=== PATIENT | female | born 1950 | race Hispanic/Latino ===

== ENCOUNTER → 2019-11-20 | Outpatient (CLI) | payer MEDICARE, BC ==
--- NOTE | 2019-11-20 15:37 | Diagnostic Imaging Report ---
Exam: KUB - 2 views Indication: Urinary calculus Comparison: Renal ultrasound of the same day Findings: 5 mm calcific density overlying the medial aspect of the left renal silhouette may represent a calculus versus intraluminal bowel content. No other radiographically apparent renal calculi. Nonobstructive bowel gas pattern. No free air. No acute osseous injury. Calcified uterine fibroids. Impression: 5 mm calcific density at the medial left renal silhouette may represent calculus versus intraluminal bowel content. Signed by: Kim Garcia MD on 11/20/2019 3:34 PM
--- NOTE | 2019-11-20 16:39 | Diagnostic Imaging Report ---
EXAM: Renal Ultrasound INDICATION: ^[id number] ^[id number] ^HYDRONEPHROSIS COMPARISON: KUB of the same day TECHNIQUE: Transverse and longitudinal images of the kidneys and bladder were obtained. FINDINGS: Right Kidney: Length: 10.7 cm Appearance: Normal echogenicity. Collecting system: Moderate hydronephrosis Stones: None Cyst/Mass: None Left Kidney: Length: 11.2 cm Appearance: Normal echogenicity. Collecting system: Mild hydronephrosis Stones: None Cyst/Mass: None Bladder: No mass or calculi. Right ureteral jet visualized. Prevoid volume estimate of 141cc. Post void image shows complete emptying. IMPRESSION: Moderate right and mild left hydronephrosis, persistent following voiding. Signed by: Kim Garcia MD on 11/20/2019 4:36 PM
== END ==
LOC: US 13:06
PROVIDERS: ATTEND Urology
DX: N13.30 Unspecified hydronephrosis (principal)
CPT/HCPCS: 74018; 76770

== ENCOUNTER → 2019-12-06 | Outpatient (CLI) | payer MEDICARE, BC ==
[~2019-12-06] MED LIST: AMLODIPINE BESYL5 MG PO; ASPIR 8181 MG PO; CEFDINIR300 MG PO; CLINDAMYCI300 MG/51 IV; Calcium Carbonate 500MG Chew PO; DITROPAN XL5 MG PO; HYDRALAZINE HCL25 MG PO; IBUPROFEN200 MG PO; KEFLEX500 MG PO; LABETALOL HCL100 MG PO; LEVAQUIN500 MG IV; MELATONIN5 M2 PO; METHOTREXATE2.5 MG PO; PANTOPRAZOLE SO40 MG PO; PRAVASTATIN SOD20 MG PO; SERTRALINE HCL100 MG PO; SIMETHICONE80 MG PO; SULFASALAZINE500 MG PO; TYLENOL # 31 EA PO; TYLENOL WITH C1 EACH PO; VITAMIN D32000 UNI2 PO; folic acid PO; potassium PO
--- NOTE | 2019-12-06 10:52 | Diagnostic Imaging Report ---
EXAM: CT Abdomen and Pelvis WITHOUT intravenous contrast INDICATION: Renal calculus, hydronephrosis COMPARISON: KUB 11/20/2019, renal ultrasound 11/20/2019 TECHNIQUE: Abdomen and pelvis were scanned utilizing a multidetector helical scanner from the lung base to the pubic symphysis without administration of IV contrast. Coronal and sagittal reformations were obtained. IV CONTRAST: None ORAL CONTRAST: None COMPLICATIONS: None RADIATION DOSE: Total DLP: 456 mGy*cm Dose modulation, iterative reconstruction, and/or weight based adjustment of the mA/kV was utilized to reduce the radiation dose to as low as reasonably achievable. FINDINGS: LOWER THORAX: Scattered coronary artery atherosclerotic calcifications. HEPATOBILIARY: No focal liver lesion. No biliary ductal dilation. Cholelithiasis without CT evidence of gallstones. SPLEEN: Subcentimeter calcified granuloma in the nonenlarged spleen. PANCREAS: No focal masses or ductal dilatation. ADRENALS: No adrenal nodules. KIDNEYS/URETERS: Moderate to severe left hydroureteronephrosis without obstructing calculus. This is likely secondary to extrinsic compression from a bulky calcified uterine fibroid which exerts mass effect upon the left distal ureter and ureterovesical junction. Multiple nonobstructive 3 to 4 mm left renal calculi. Nonobstructive renal calculi on the right measure up to 6 mm. No right hydronephrosis or hydroureter. PELVIC ORGANS/BLADDER: Multiple prominent calcified uterine fibroids, the most clinically significant of which measures up to 5.1 x 5.9 x 6.3 cm with associated mass effect upon the distal ureter and left ureterovesical junction. Mild bladder prolapse through the pelvic floor. PERITONEUM / RETROPERITONEUM: No free air or fluid. LYMPH NODES: No lymphadenopathy. VESSELS: Moderate atherosclerotic calcifications of the nonaneurysmal abdominal aorta and major branches. GI TRACT: Diverticulosis without CT evidence of diverticulitis. No abnormal bowel thickening. No bowel obstruction. Normal appendix BONES AND SOFT TISSUES: No acute osseous injury. No suspicious lytic or blastic lesions. Degenerative changes of the visualized spine. Minimal retrolisthesis at L2-3 and minimal anterolisthesis at L3-4 without spondylolysis. IMPRESSION: Moderate to severe left hydroureteronephrosis without obstructing calculus, likely secondary to extrinsic compression upon the left distal ureter and left ureterovesical junction by bulky calcified uterine fibroids. Multiple nonobstructive right and left renal calculi, up to 4 mm on the left and 6 mm on the right. Mild bladder prolapse. Cholelithiasis without CT evidence of cholecystitis. Signed by: Kim Garcia MD on 12/06/2019 10:49 AM
== END ==
LOC: CT 09:20
PROVIDERS: ATTEND Urology
DX: N20.0 Calculus of kidney (principal); N13.30 Unspecified hydronephrosis
CPT/HCPCS: 74176

== ENCOUNTER 2019-12-20 11:10 | Inpatient (IN) | payer MEDICARE, BC, OTHER ==
[~2019-12-20] VITALS: Ht 154.9 cm; Wt 66.7 kg
--- OUTSIDE RECORDS SUMMARY | 2019-12-20 11:12 | XMS REPORT ---
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 Allergies, Adverse Reactions, Alerts This patient has no known allergies or adverse reactions. Medications This patient has no known medications. Results Test Description Test Time Test Comments Text Results Atomic Results Result Comments CT ABDOMEN/PELVIS WO 2019-12-06 10:38:00 [place] [id number] [place] [id number] Patient Name: YOHANA JURADO MR #: [id number] : 1950 Age/Sex: 69/F Req #: [id number] [facility] Physician: Ordered by: SINAI LEW MD Report #: [id number] Location: CT Room/Bed: Procedure: [id number] CT/CT ABDOMEN/PELVIS WO Exam Date: 12/06/19 Exam Time: 0950 REPORT STATUS: Signed EXAM: CT Abdomen and Pelvis WITHOUT intravenous contrast INDICATION: Renal calculus, hydronephrosis COMPARISON: KUB 11/20/2019, renal ultrasound 11/20/2019 TECHNIQUE: Abdomen and pelvis were scanned utilizing a multidetector helical scanner from the lung base to the pubic symphysis without administration of IV contrast. Coronal and sagittal reformations were obtained. IV CONTRAST: None ORAL CONTRAST: None COMPLICATIONS: None RADIATION DOSE: Total DLP: 456 mGy*cm Dose modulation, iterative reconstruction, and/or weight based adjustment of the mA/kV was utilized to reduce the radiation dose to as low as reasonably achievable. FINDINGS: LOWER THORAX: Scattered coronary artery atherosclerotic calcifications. HEPATOBILIARY: No focal liver lesion. No biliary ductal dilation. Cholelithiasis without CT evidence of gallstones. SPLEEN: Subcentimeter calcified granuloma in the nonenlarged spleen. PANCREAS: No focal masses or ductal dilatation. ADRENALS: No adrenal nodul es. KIDNEYS/URETERS: Moderate to severe left hydroureteronephrosis without obstructing calculus. This is likely secondary to extrinsic compression from a bulky calcified uterine fibroid which exerts mass effect upon the left distal ureter and ureterovesical junction. Multiple nonobstructive 3 to 4 mm left renal calculi. Nonobstructive renal calculi on the right measure up to 6 mm. No right hydronephrosis or hydroureter. PELVIC ORGANS/BLADDER: Multiple prominent calcified uterine fibroids, the most clinically significant of which measures up to 5.1 x 5.9 x 6.3 cm with associated mass effect upon the distal ureter and left ureterovesical junction. Mild bladder prolapse through the pelvic floor. PERITONEUM / RETROPERITONEUM: No free air or fluid. LYMPH NODES: No lymphadenopathy. VESSELS: Moderate atherosclerotic calcifications of the nonaneurysmal abdominal aorta and major branches. GI TRACT: Diverticulosis without CT evidence of diverticulitis. No abnormal bowel thickening. No bowel obstruction. Normal appendix BONES AND SOFT TISSUES: No acute osseous injury. No suspicious lytic or blastic lesions. Degenerative changes of the visualized spine. Minimal retrolisthesis at L2-3 and minimal anterolisthesis at L3-4 without spondylolysis. IMPRESSION: Moderate to severe left hydroureteronephrosis without obstructing calculus, likely second elizabeth to extrinsic compression upon the left distal ureter and left ureterovesical junction by bulky calcified uterine fibroids. Multiple nonobstructive right and left renal calculi, up to 4 mm on the left and 6 mm on the right. Mild bladder prolapse. Cholelithiasis without CT evidence of cholecystitis. Signed by: Neil Mak MD on 12/06/2019 10:49 AM Dictated By: NEIL MAK MD 1047 Transcribed By: MAKAYLA on 12/06/19 1042 COPY TO: SINAI LEW MD US RENAL RETROPERITONEAL COMP 2019-11-20 16:34:00 [place] [address] Patient Name: YOHANA JURADO MR #: [id number] : 1950 Age/Sex: 69/F Req #: [id number] Adm Physician: Ordered by: SINAI LEW MD Report #: [id number] Location: Room/Bed: Procedure: [id number] US/US RENAL RETROPERITONEAL COMP Exam Date: 11/20/19 Exam Time: 8 REPORT STATUS: Signed EXAM: Renal Ultrasound INDICATION: [id number] HYDRONEPHROSIS COMPARISON: KUB of the same day TECHNIQUE: Transverse and longitudinal images of the kidneys and bladder were obtained. FINDINGS: Right Kidney: Length: 10.7 cm Appearance: Normal echogenicity. Collecting system: Moderate hydronephrosis Stones: None Cyst/Mass: None Left Kidney: Length: 11.2 cm Appearance: Normal echogenicity. Collecting system: Mild hydronephrosis Stones: None Cyst/Mass: None Bladder: No mass or calculi. Right ureteral jet visualized. Prevoid volume estimate of 141cc. Post void image jesus ws complete emptying. IMPRESSION: Moderate right and mild left hydronephrosis, persistent following voiding. Signed by: Neil Mak MD on 11/20/2019 4:36 PM Dictated By: NEIL MAK MD 1636 Transcribed By: MAKAYLA on 11/20/19 1636 COPY TO: SINAI LEW MD ABDOMEN-1VIEW (KUB) 2019-11-20 15:31:00 [place] [address] Patient Name: YOHANA JURADO MR #: [id number] : 1950 Age/Sex: 69/F Req #: [id number] [facility] Physician: Ordered by: SINAI LEW MD Report #: [id number] Location: Room/Bed: Procedure: [id number] DX/ABDOMEN-1VIEW (KUB) Exam Date: 11/20/19 Exam Time: 1350 REPORT STATUS: Signed Exam: KUB - 2 views Indication: Urinary calculus Comparison: Renal ultrasound of the same day Findings: 5 mm calcific density overlying the medial aspect of the left renal silhouette may represent a calculus versus intraluminal bowel content. No other radiographically apparent renal calculi. Nonobstructive bowel gas pattern. No free air. No acute osseous injury. Calcified uterine fibroids. Impression: 5 mm calcific density at the medial left renal silhouette may represent calculus versus intraluminal bowel content. Signed by: Neil Mak MD on 11/20/2019 3:34 PM Dictated By: NEIL MAK MD 1534 Transcribed By: MAKAYLA on 11/20/19 1534 COPY TO: SINAI LEW MD
[2019-12-20 12:11] LABS: BASOPHILS # (AUTO) 0.1 (0.0-0.1); BASOPHILS % 0.5 % (0.0-1.0); EOSINOPHILS # (AUTO) 0.2 (0.0-0.4); EOSINOPHILS % 0.8 % (0.0-6.0); HEMATOCRIT 36.8 % (34.2-44.1); HEMOGLOBIN 12.3 g/dL (12.0-16.0); LYMPHOCYTES # (AUTO) 0.6 (1.0-3.2); LYMPHOCYTES % 2.5 % (18.0-39.1); MEAN CORPUSCULAR HEMOGLOBIN 33.1 pg (28-32); MEAN CORPUSCULAR HGB CONC 33.4 g/dL (31-35); MEAN CORPUSCULAR VOLUME 98.9 fL (81-99); MONOCYTES # (AUTO) 1.8 (0.2-0.8); MONOCYTES % 7.8 % (4.4-11.3); NEUTROPHILS # (AUTO) 19.2 (2.1-6.9); NEUTROPHILS % 82.8 % (38.7-80.0); PLATELET COUNT 154 x10e3/uL (140-360); RED BLOOD COUNT 3.72 x10e6/uL (3.6-5.1)
[2019-12-20 12:19] LABS: CLARITY,URINE SL CLOUDY (CLEAR); COLOR,URINE YELLOW (YELLOW); LEUKOCYTE ESTERASE ,URINE LARGE (NEGATIVE)
[2019-12-20 12:20] LABS: BILIRUBIN,URINE NEGATIVE (NEGATIVE); KETONES,URINE NEGATIVE (NEGATIVE); NITRITE,URINE POSITIVE (NEGATIVE); PROTEIN,URINE DIPSTICK 2+ (NEGATIVE); URINE UROBILINOGEN 0.2 mg/dL (0.2 - 1)
[2019-12-20 12:24] LABS: STREPTOCOCCUS GRP A ANTIGEN NEGATIVE (NEGATIVE)
[2019-12-20 12:28] LABS: WBC,URINE (MAN) >50 /HPF (0-5)
[2019-12-20 12:29] LABS: BACTERIA,URINE MANY /HPF; INFLUENZAE A&B ANTIGEN (RAPID) NEGATIVE (NEGATIVE)
[2019-12-20 12:30] LABS: EPITHELIAL CELLS,URINE FEW /LPF
[2019-12-20 12:33] LABS: ANION GAP 15.2 mmol/L (8-16); CREATININE, SERUM 1.06 mg/dL (0.57-1.11); POTASSIUM 3.2 mmol/L (3.5-5.1)
[2019-12-20] MEDS ORDERED: KCL 20MEQ/.9 SOD CHL 1,000 ML IV ONE (13:15)
[2019-12-20] MEDS ORDERED: ONDANSETRON HCL INJ 2MG/ML 2ML 2 MG/ML VIAL IV PRN (13:15)
[2019-12-20] MEDS ORDERED: POTASSIUM CHLORIDE 20 MEQ TAB CR PO NR (13:30)
[2019-12-20] MEDS: MEROPENEM 1GM 100 ML IV SCH ×2 (14:31→22:00)
--- NOTE | 2019-12-20 15:11 | Diagnostic Imaging Report ---
History: Abdominal pain Comparison: None Findings: Mild curvilinear subsegmental atelectasis versus scar at the left lung base. 3 mm calcified granuloma at the apex of the right hemithorax. Lungs otherwise clear. No pleural effusions or pneumothorax. The heart shadow is normal in size. The thoracic aorta is mildly tortuous. Degenerative changes are present in the spine and shoulders. Impression: No definite evidence of acute cardiopulmonary disease. Signed by: Rene Morton MD on 12/20/2019 3:08 PM
--- NOTE | 2019-12-20 15:20 | NUR ---
Received patient via stretcher from [place]. AAOX4 to time, person, place, situation. SOB with maximum exertion. Oriented patient to room. Instructed to use call light for assistance. Voiced understanding.
[2019-12-20] MEDS ORDERED: SULFASALAZINE500 MG PO (16:04)
[2019-12-20] MEDS ORDERED: VITAMIN D32000 UNI2 PO (16:04)
[2019-12-20] MEDS ORDERED: PRAVASTATIN SOD20 MG PO (16:04)
[2019-12-20] MEDS ORDERED: SERTRALINE HCL100 MG PO (16:04)
[2019-12-20] MEDS ORDERED: METHOTREXATE2.5 MG PO (16:04)
[2019-12-20] MEDS ORDERED: HYDRALAZINE HCL25 MG PO (16:04)
[2019-12-20] MEDS ORDERED: LABETALOL HCL100 MG PO (16:04)
[2019-12-20] MEDS ORDERED: AMLODIPINE BESYL5 MG PO (16:04)
[2019-12-20] MEDS ORDERED: folic acid PO (16:04)
[2019-12-20] MEDS ORDERED: potassium PO (16:04)
[2019-12-20] MEDS ORDERED: ASPIR 8181 MG PO (16:04)
[2019-12-20] MEDS ORDERED: PANTOPRAZOLE SO40 MG PO (16:04)
[2019-12-20] MEDS ORDERED: IBUPROFEN200 MG PO (16:04)
--- NOTE | 2019-12-20 16:04 | Diagnostic Imaging Report ---
CT of the abdomen and pelvis, without contrast. History: UTI, hydronephrosis. Comparison: 12/06/2019. Technique: Multidetector CT scanning of the abdomen and pelvis was performed from the level of the lung bases to the inferior pubic rami after intravenous and oral administration of contrast. Coronal and sagittal multiplanar reformations were obtained. RADIATION DOSE: Total DLP: 671.37 mGy*cm Dose modulation, iterative reconstruction, and/or weight based adjustment of the mA/kV was utilized to reduce the radiation dose to as low as reasonably achievable. FINDINGS: There is a basilar atelectasis/scarring. The liver is normal in size and attenuation on this noncontrast enhanced examination. Stable appearing calcified gallstones noted within the gallbladder. There is no evidence for gallbladder wall thickening or pericholecystic fluid. There is no biliary ductal dilatation. There is a small to moderate size hiatal hernia present. The stomach is otherwise unremarkable. The spleen, pancreas, and bilateral adrenal glands demonstrate unremarkable noncontrast appearance. The kidneys are normal in size and location. Stable subcentimeter nonobstructing renal calculi/parenchymal calcifications noted bilaterally. There is stable moderate left-sided hydroureteronephrosis without evidence for obstructing stone, unchanged from the prior CT examination from 12/06/2019. Stable mild left-sided perinephric stranding again noted. There has been interval development of moderate right-sided hydroureteronephrosis without evidence for obstructing stone. Bulky calcified uterine fibroids again noted. Also noted is mild bladder prolapse through the pelvic floor, similar to the prior examination. The abdominal aorta is normal in course and caliber with atherosclerotic calcifications within its course and branch vessels. The IVC is normal in caliber. Please note that evaluation the bowel is limited without the use of enteric contrast material. The visualized loops of small and large bowel demonstrate no evidence of obstruction or inflammation. Multiple diverticula are noted within the sigmoid and descending colon without evidence for acute diverticulitis. The appendix is visualized and appears unremarkable. There is no ascites or intraperitoneal free air. No abnormally enlarged lymph nodes are identified within the abdomen or pelvis. The osseous structures demonstrate stable degenerative changes without evidence for acute fracture or destructive process. IMPRESSION: Interval development of moderate right-sided hydroureteronephrosis. Persistent, stable appearing moderate left-sided hydroureteronephrosis. There is no evidence for obstructive calculus. Findings may be secondary to urinary bladder prolapse and/or extrinsic compression of the ureterovesicular junctions by bulky calcified uterine fibroids. Stable appearing nonobstructive subcentimeter renal calculi again noted. Cholelithiasis without CT evidence for acute cholecystitis. Diverticulosis without evidence for acute diverticulitis. Signed by: Dr. Armando Mar MD on 12/20/2019 4:01 PM
[2019-12-20 16:07] VITALS: BP 124/91
--- NOTE | 2019-12-20 16:10 | NUR ---
O aware of CT results
[2019-12-20 16:15] VITALS: BP 124/91
--- NOTE | 2019-12-20 16:35 | NUR ---
aware of consult
[2019-12-20] MEDS: ACETAMINOPHEN 325 MG TAB PO PRN (17:20)
[2019-12-20] MEDS ORDERED: POTASSIUM CHLORIDE 20 MEQ TAB CR PO STA (18:41)
[2019-12-20] MEDS ORDERED: ACETAMINOPHEN/CODEINE 300MG - 30MG TAB PO PRN (18:45)
--- NOTE | 2019-12-20 19:10 | NUR ---
Report given to oncoming nurse of patient's status. Resting in bed. No s/s of acute distress noted. Side rails upx2, call light within reach.
[2019-12-20 20:00] VITALS: BP 110/53
[2019-12-20] MEDS ORDERED: SODIUM CHLORIDE 0.9% 1000ML 0 ML ONE (22:24)
[2019-12-20] MEDS ORDERED: SODIUM CHLORIDE 0.9% 250ML 250 ML ONE (22:32)
[2019-12-21] VITALS (10 sets, daily range): BP systolic 106–161; BP diastolic 67–95
[2019-12-21 06:14] LABS: BASOPHILS # (AUTO) 0.1 (0.0-0.1); BASOPHILS % 0.4 % (0.0-1.0); EOSINOPHILS # (AUTO) 0.1 (0.0-0.4); EOSINOPHILS % 0.8 % (0.0-6.0); HEMATOCRIT 33.7 % (34.2-44.1); HEMOGLOBIN 10.6 g/dL (12.0-16.0); LYMPHOCYTES # (AUTO) 0.6 (1.0-3.2); LYMPHOCYTES % 3.6 % (18.0-39.1); MEAN CORPUSCULAR HEMOGLOBIN 32.3 pg (28-32); MEAN CORPUSCULAR HGB CONC 31.5 g/dL (31-35); MEAN CORPUSCULAR VOLUME 102.7 fL (81-99); MONOCYTES # (AUTO) 1.1 (0.2-0.8); MONOCYTES % 6.7 % (4.4-11.3); NEUTROPHILS # (AUTO) 13.8 (2.1-6.9); NEUTROPHILS % 87.4 % (38.7-80.0); PLATELET COUNT 133 x10e3/uL (140-360); RED BLOOD COUNT 3.28 x10e6/uL (3.6-5.1)
[2019-12-21 06:32] LABS: ALBUMIN 2.7 g/dL (3.5-5.0); ALBUMIN/GLOBULIN RATIO 0.8 (0.8-2.0); ANION GAP 11.5 mmol/L (8-16); CALCIUM 8.9 mg/dL (8.4-10.2); CREATININE, SERUM 0.99 mg/dL (0.57-1.11); POTASSIUM 4.5 mmol/L (3.5-5.1)
[2019-12-21 06:44] LABS: MAGNESIUM 1.6 MG/DL (1.3-2.1)
[2019-12-21 07:02] LABS: THYROID STIMULATING HORMONE 2.685 uIU/mL (0.350-4.940)
--- NOTE | 2019-12-21 07:12 | NUR ---
REPORT GIVEN TO ONCOMING NURSE. AAOX3. NO SIGNS OF IV INFILTRATION AT L FA. RESTING IN BED. BED LOCKED AND IN LOW POSITION. CALL LIGHT WITHIN REACH.
[2019-12-21] MEDS: FAMOTIDINE 20 MG TAB PO SCH ×2 (08:15→15:20)
[2019-12-21] MEDS: ACETAMINOPHEN 325 MG TAB PO PRN ×2 (08:16→15:20)
[2019-12-21] MEDS: SERTRALINE HCL 100 MG TAB PO SCH (08:16)
[2019-12-21] MEDS: MEROPENEM 1GM 100 ML IV SCH ×2 (08:16→21:30)
[2019-12-21] MEDS: PRAVASTATIN 20 MG TAB PO SCH (08:16)
[2019-12-21] MEDS: AMLODIPINE BESYLATE 5 MG TAB PO SCH (15:20)
--- NOTE | 2019-12-21 17:45 | Consultation ---
DATE OF CONSULTATION: REASON FOR CONSULTATION: Pyelonephritis, UTI. HISTORY OF PRESENT ILLNESS: This patient is a very pleasant 69-year-old white female with history of renal stone. The patient comes in with fever, chills, body aches, not feeling well. She does have history of renal stone. She does have history of bladder surgery. The patient comes into the emergency room on December 19 with one week not feeling well, feverish, 101. No shortness of breath. No cough. No diarrhea, but since we were in the middle of the epidemic for COVID-19, so it was ordered. The patient was started on IV antibiotic. She is telling me she is feeling much better at present time, there are no symptoms whatsoever. REVIEW OF SYSTEMS: At present time HEENT: Negative. PULMONARY: Negative. CARDIAC: Negative. : Negative at present time, but she is telling me she has problem with the urine for a while. She said her body aches and her fever has all improved. PAST MEDICAL HISTORY: Renal stone, hypertension, osteoarthritis. PAST SURGICAL HISTORY: Hernia repair, thyroid surgery. ALLERGIES: AUGMENTIN, BUT SHE IS DOING GOOD WITH MEROPENEM. LABORATORY DATA: Urine cultures gram-negative. When she first came her white count was 22,000, today is 15.7, hemoglobin of 10. Her COVID-19 is pending. PHYSICAL EXAMINATION: GENERAL: She is currently alert, oriented, does not seem to be in acute distress. VITAL SIGNS: Stable. Currently afebrile. HEENT: She is not icteric. NECK: Supple. CHEST: Clear. HEART: S1-S2, no murmur. ABDOMEN: Soft. Bowel sounds present. EXTREMITIES: No edema. SKIN: No rash. IMPRESSION: 1. Sepsis on admission, pyelonephritis, currently on meropenem. Await urine cultures are blood cultures. Clinically feeling better. 2. COVID-19 being ordered. There is nothing to suggest pneumonia at present time and we will keep her on droplet. If it is negative, hopefully we can get this result, can remove the droplet isolation. Continued IV fluid. Discussed with the patient. Discussed with medical team, answered all their questions. MD BRANDAN Hogan/TINA /[id number]
--- NOTE | 2019-12-21 22:56 | Consultation ---
DATE OF CONSULTATION: 12/21/2019 REASON FOR CONSULTATION: The patient is a 69-year-old 2, para 2, with last menstrual period in June of 2005, who was admitted to the hospital with dysuria, fatigue, malaise, and myalgias. Her symptoms started a week ago, got a little better, but then worsened again 3 days ago. She had a fever and she was admitted for urosepsis, basically cystitis with right hydronephrosis and Dr. Rick Ayala consulted me for evaluation for hysterectomy and also to reflect on the urgency of the surgery. The patient had a white count of 23,000 on admission and fever. She has been on IV antibiotics for this since admission. PAST MEDICAL HISTORY: Remarkable for hypertension, hyperlipidemia, rheumatoid arthritis for 10 years, on methotrexate, sulfasalazine, and Motrin. Medical history is also remarkable for uterine prolapse, anxiety and depression, and renal stones, which she has had in the past, but current ones have been present for approximately a month. She also has some kind of heart problem, which she did not know how to describe, but she said, Dr. Amarjit Adorno is her senior mechanical estimator and he told her to be careful and not overdo things, but otherwise did not recommend any therapy. PAST SURGICAL HISTORY: Remarkable for right inguinal hernia repair 15 years ago and for thyroid surgery. ALLERGIES: AUGMENTIN AND LISINOPRIL. MEDICATIONS: Please see her medication profile. FAMILY HISTORY: Remarkable for diabetes in her mother, hypertension in her mother and father, and heart disease in her mother and father. SOCIAL HISTORY: Remarkable for occasional alcohol intake and very occasional vaping. PHYSICAL EXAMINATION: VITAL SIGNS: The patient's height is 61 inches. Her weight is 147 pounds. Her temperature late this morning was 98.8, current temperature is 101, pulse 87, blood pressure 142/79, respirations 18, and SpO2 93%. ABDOMEN: Relatively benign. Mild right-sided tenderness. There was no CVA tenderness on either side and no rebound tenderness. PELVIC: With a commercial director revealed complete uterovaginal prolapse with the cervix and bladder visible external to the introitus. I was able to push the uterus and bladder back up and the uterus felt slightly enlarged, but did not feel very enlarged, but exam was limited due to the place where the exam was performed. The vaginal salazar were smooth without rugation. No vulvar lesions were noted. LABORATORY VALUES: As stated on admission, white count 23.2. Her sodium on admission 132, potassium 3.2, and today her sodium was 138, potassium 4.5, chloride 106, bicarb 25, glucose 98, and creatinine 0.99. Hemoglobin A1c was 5.8. Her white count today 15.7, hemoglobin 10.6, hematocrit 33.7, platelets 133 with 87 segs and 4 lymphs. Urine culture shows greater than 100,000 gram-negative rods. Culture and sensitivities are pending. Urinalysis on admission showed 50-100 white blood cells per high-power field. Nitrites were positive and nitrates were positive. Influenza A and B were negative. Strep A was negative. COVID-[address] scan revealed moderate right hydronephrosis, which was a new finding and persistent moderate left hydronephrosis, which was a previous finding. There was no evidence of obstruction by stones, but there were nonobstructing bilateral stones of less than 1 cm in size noted. It was thought that the hydronephrosis may be due to bladder prolapse and/or extensive compression of uterovesical junction by bulky calcified fibroids of the uterus. However, no dimensions were given to the fibroids or to the uterus as a whole. Also, incidental findings cholelithiasis without cholecystitis and diverticulosis without diverticulitis. She also had a chest x-ray, which showed a 3 mm calcified granuloma at the apex of the right hemithorax and mild subsegmental atelectasis versus scarring at the left lung base. IMPRESSION: Cystitis with hydronephrosis, hypokalemia, total uterovaginal prolapse and vaginal atrophy in a patient, who also has hypertension on Norvasc, anxiety and depression on Zoloft and rheumatoid arthritis on immunosuppressants with those medications held during the hospitalization. PLAN: The patient definitely needs hysterectomy with bladder suspension and vaginal cuff suspension. I will discuss the treatment options with Dr. Ayala and also discussed the urgency with which we need to proceed with the surgery. I do think that the surgery should be soon, but whether it needs to be emergent before the ban on elective surgery is questionable at this time. Again, we will discuss with the primary care doctor and with Dr. Rick Ayala, urologist. Thank you very much for the consult. MD ANTONY De Luna/TINA /[id number] cc: DO Will Hernandez MD Ori Hampel, MD MTDD
[2019-12-22] VITALS (11 sets, daily range): BP systolic 95–185; BP diastolic 63–89
[2019-12-22] MEDS: ACETAMINOPHEN 325 MG TAB PO PRN ×3 (05:36→21:49)
[2019-12-22 06:35] LABS: BASOPHILS % 0.4 % (0.0-1.0); EOSINOPHILS # (AUTO) 0.2 (0.0-0.4); EOSINOPHILS % 1.9 % (0.0-6.0); HEMATOCRIT 37.6 % (34.2-44.1); HEMOGLOBIN 12.1 g/dL (12.0-16.0); LYMPHOCYTES # (AUTO) 0.8 (1.0-3.2); MEAN CORPUSCULAR HEMOGLOBIN 31.8 pg (28-32); MEAN CORPUSCULAR HGB CONC 32.2 g/dL (31-35); MEAN CORPUSCULAR VOLUME 98.9 fL (81-99); MONOCYTES # (AUTO) 0.8 (0.2-0.8); MONOCYTES % 9.6 % (4.4-11.3); NEUTROPHILS # (AUTO) 6.5 (2.1-6.9); NEUTROPHILS % 77.1 % (38.7-80.0); PLATELET COUNT 148 x10e3/uL (140-360); RED CELL DISTRIBUTION WIDTH 14.7 % (11.7-14.4)
[2019-12-22 07:02] LABS: ANION GAP 14.5 mmol/L (8-16); BLOOD UREA NITROGEN 18 mg/dL (7-26); BUN/CREATININE RATIO 22 (6-25); CALCIUM 9.5 mg/dL (8.4-10.2); CARBON DIOXIDE 25 mmol/L (22-29); CHLORIDE 101 mmol/L (98-107); CREATININE, SERUM 0.82 mg/dL (0.57-1.11); EST GLOMERULAR FILTRATION RATE > 60 ML/MIN (60-); GLUCOSE 101 mg/dL (74-118); MAGNESIUM 1.7 MG/DL (1.3-2.1); POTASSIUM 3.5 mmol/L (3.5-5.1); SODIUM 137 mmol/L (136-145)
[2019-12-22] MEDS: PRAVASTATIN 20 MG TAB PO SCH (08:13)
[2019-12-22] MEDS: FAMOTIDINE 20 MG TAB PO SCH ×2 (08:13→16:45)
[2019-12-22] MEDS: AMLODIPINE BESYLATE 5 MG TAB PO SCH ×2 (08:13→16:45)
[2019-12-22] MEDS: SERTRALINE HCL 100 MG TAB PO SCH (08:13)
[2019-12-22] MEDS: MEROPENEM 1GM 100 ML IV SCH ×2 (08:13→21:48)
[2019-12-22] MEDS ORDERED: CEFDINIR300 MG PO (11:00)
[2019-12-22] MEDS ORDERED: ONDANSETRON HCL 4 MG ORAL DISINTEGRATING TAB PO PRN (16:15)
[2019-12-22] MEDS: SULFASALAZINE 500 MG TAB PO SCH (16:45)
[2019-12-22] MEDS: HYDRALAZINE HCL 20 MG/ML VIAL IV PRN (21:49)
[2019-12-23] VITALS (8 sets, daily range): BP systolic 129–183; BP diastolic 60–93
[2019-12-23 05:17] LABS: BASOPHILS % 0.5 % (0.0-1.0); EOSINOPHILS # (AUTO) 0.2 (0.0-0.4); EOSINOPHILS % 2.3 % (0.0-6.0); HEMATOCRIT 35.7 % (34.2-44.1); HEMOGLOBIN 11.7 g/dL (12.0-16.0); LYMPHOCYTES # (AUTO) 0.9 (1.0-3.2); LYMPHOCYTES % 11.4 % (18.0-39.1); MEAN CORPUSCULAR HGB CONC 32.8 g/dL (31-35); MEAN CORPUSCULAR VOLUME 97.5 fL (81-99); MONOCYTES # (AUTO) 1.4 (0.2-0.8); MONOCYTES % 16.5 % (4.4-11.3); NEUTROPHILS # (AUTO) 5.6 (2.1-6.9); NEUTROPHILS % 68.3 % (38.7-80.0); PLATELET COUNT 129 x10e3/uL (140-360); RED BLOOD COUNT 3.66 x10e6/uL (3.6-5.1); RED CELL DISTRIBUTION WIDTH 14.7 % (11.7-14.4)
[2019-12-23 05:39] LABS: ANION GAP 14.1 mmol/L (8-16); BLOOD UREA NITROGEN 16 mg/dL (7-26); BUN/CREATININE RATIO 24 (6-25); CALCIUM 9.1 mg/dL (8.4-10.2); CARBON DIOXIDE 25 mmol/L (22-29); CHLORIDE 103 mmol/L (98-107); CREATININE, SERUM 0.68 mg/dL (0.57-1.11); EST GLOMERULAR FILTRATION RATE > 60 ML/MIN (60-); GLUCOSE 117 mg/dL (74-118); POTASSIUM 3.1 mmol/L (3.5-5.1); SODIUM 139 mmol/L (136-145)
--- NOTE | 2019-12-23 06:50 | NUR ---
Received patient lying in bed with eyes open. Respiration even and unlabored without SOB. Call light in reach.
[2019-12-23] MEDS: FAMOTIDINE 20 MG TAB PO SCH ×2 (07:30→17:27)
[2019-12-23] MEDS: AMLODIPINE BESYLATE 5 MG TAB PO SCH ×2 (08:41→17:27)
[2019-12-23] MEDS: HYDRALAZINE HCL 20 MG/ML VIAL IV PRN (08:42)
[2019-12-23] MEDS: SULFASALAZINE 500 MG TAB PO SCH ×2 (09:00→17:27)
[2019-12-23] MEDS: PRAVASTATIN 20 MG TAB PO SCH (09:00)
[2019-12-23] MEDS: SERTRALINE HCL 100 MG TAB PO SCH (09:00)
--- NOTE | 2019-12-23 09:44 | Progress Note ---
DATE: 12/23/2019 SUBJECTIVE: The patient is seen and evaluated. The patient complained of temperature of 100.8 and also complains that her blood pressure is up. Otherwise, no nausea, vomiting, fever, chills, chest pain, or shortness of breath. ALLERGIES: AMOXICILLIN, CLAVULANIC ACID AND LISINOPRIL. MEDICATION: Reviewed as far as Infectious Disease point of view, the patient is on meropenem. LABORATORY STUDIES: COVID-19 not detected. Influenza negative. Group A strep screen negative. Sodium is 139, potassium is 3.1, creatinine of 0.68, hemoglobin is 11.7, white blood cells 8.4 improved from 23.23 on admission with a platelet count of 129, which is lower than yesterday, which was 148. On microbiology studies; urine culture showed E coli, which is pansensitive except to ampicillin and Bactrim. Blood culture was negative on 12/20/2019. Throat culture was negative on 12/20/2019. PRIOR RADIOLOGY STUDIES: The patient had a CT scan of abdomen and pelvis on 12/20/2019 showing a development of moderate right-sided hydroureteronephrosis, persistent and stable appearing moderate left-sided hydroureteronephrosis, and there is no evidence of obstructive calculus. The finding may be secondary to urinary bladder prolapse and/or extrinsic compression of the ureterovesical junction by bulky calcified uterine fibroids. ASSESSMENT: 1. Urinary tract infection with E coli. 2. Sepsis on admission. 3. [id number], influenza, and strep screen were negative with a negative blood culture, positive urine with E coli as mentioned above. 4. Leukocytosis, resolved. 5. Thrombocytopenia. 6. Hypertension. 7. Electrolyte abnormalities. PLAN: Continue with meropenem at this point, the patient can be discharged with oral antibiotics as mentioned in Dr. Sandy's note Keflex, when ready for discharge. As mentioned above, the patient had a temperature of 100.8 this morning, otherwise the patient wants to go home. Alert and oriented, in no acute distress. This case was discussed with Dr. Sandy. We will follow with you. We will discuss with the attending team. Dictated by Demar Wheatley PA-C (Al) Johnny Sandy MD /ELDONL /[id number]
[2019-12-23] MEDS: MEROPENEM 1GM 100 ML IV SCH ×2 (10:12→20:58)
[2019-12-23] MEDS ORDERED: POTASSIUM CHLORIDE 20MEQ/100ML 200 ML IV ONE (10:45)
--- NOTE | 2019-12-23 10:45 | NUR ---
Pt. expressed no spiritual or emotional concerns at this time. Pt expressed appreciation for visit. Loading Checker provided hospitality and information on how to reach weir fisherman, if needed. ERWIN ANDERSON Loading Checker Spiritual Care Department O: [phone]
[2019-12-23] MEDS: LABETALOL HCL 100 MG TAB PO SCH ×2 (10:56→17:28)
[2019-12-23] MEDS ORDERED: SODIUM CHLORIDE 0.9% 250ML 250 ML ONE (11:00)
[2019-12-23] MEDS: ACETAMINOPHEN 325 MG TAB PO PRN (13:47)
[2019-12-23] MEDS ORDERED: PROPOFOL IV EMULSION 10 MG/ML 20 ML VIAL ONE (14:29)
[2019-12-23] MEDS ORDERED: DEXAMETHASONE SOD PHOS INJ 4 MG/ML VIAL ONE (14:29)
[2019-12-23] MEDS ORDERED: LIDOCAINE HCL 2% LOCAL INJ 5 ML SDV VIAL INJ ONE (14:29)
[2019-12-23] MEDS ORDERED: SEVOFLURANE INHAL SOLN 250 ML PEN BTL ONE (14:29)
[2019-12-23] MEDS ORDERED: IOPAMIDOL 300MG/ML 50ML INFUS..BTL IV ONE (14:53)
[2019-12-23] MEDS ORDERED: B&O 60MG R/S 60 MG SUPP PR ONE (14:53)
--- NOTE | 2019-12-23 15:00 | NUR ---
Patient is transported for surgery at this time.
--- NOTE | 2019-12-23 17:15 | NUR ---
Patient is back from surgery. Respiration even and unlabored without SOB.
[2019-12-23] MEDS: PHENAZOPYRIDINE HCL 100 MG TAB PO SCH (17:28)
--- NOTE | 2019-12-23 19:00 | NUR ---
Report given to fertilizer mixer. Respiration even and unlabored without SOB. Call light in reach.
--- NOTE | 2019-12-23 20:26 | Operative Report ---
DATE OF PROCEDURE: 12/23/2019 SURGEON: Rick Ayala MD PREOPERATIVE DIAGNOSES: 1. Bilateral hydronephrosis. 2. Bilateral nephrolithiasis. 3. Severe pelvic prolapse. 4. Atrophic (senile) vaginitis. OPERATIONS PERFORMED: 1. Cystourethroscopy with bilateral ureteral catheterization and then retrograde ureteropyelography. 2. Interpretation of retrograde ureteropyelography with no radiologist present. 3. Cystourethroscopy with complicated placement of bilateral indwelling ureteral stents due to the severe pelvic prolapse. 4. Pelvic examination under anesthesia. ANESTHESIA: General. COMPLICATIONS: None. CLINICAL SUMMARY: Luisa Rodriguez is a 69-year-old woman with severe prolapse. She needs total abdominal hysterectomy, bilateral salpingo-oophorectomy and sacral colpopexy with mesh. The patient on initial CT evaluation several weeks ago had left sided hydronephrosis after admission for the severe pyelonephritis with urinary tract infection. The patient has bilateral hydronephrosis, therefore due to the complicated infection with obstruction, she brought for stenting. She is aware of the risks of bleeding, infection, injury to adjacent structures, need for additional procedures, and elected to proceed. OPERATIVE PROCEDURE IN DETAIL: Luisa Rodriguez was properly identified, taken to the operating room, placed on the cystoscopy table in supine position. Anesthesia was uneventfully begun. The patient was then carefully and gently repositioned in the dorsal lithotomy position with all pressure points were padded. Her genitalia were prepared and draped in usual sterile fashion. The cystoscope sheath with obturator in place was atraumatically inserted into the patient's urethra and bladder was drained. Panendoscopy in her bladder really could not be performed unless we first push the patient's prolapse back into her vagina. We did that and then held the vagina in proper position utilizing an obturator throughout the whole case. Panendoscopy revealed grade 2 to 3 trabeculations. Obviously, the patient prolapse causing bladder outlet obstruction. There were no suspicious lesions. The anatomy was highly distorted. We were able to find the left ureteral orifice negotiated the open-ended ureteral catheter utilizing different wires we were able to somehow negotiate the open-ended catheter into the patient's kidney. There was a brisk, but clear hydronephrotic drip that was obtained. We then placed a 7-[place] [employer] x 24 cm indwelling ureteral stent well in the patient's renal pelvis as well as the patient's bladder. Identical maneuver was performed on the right hand side accomplishing on the right hand side was even more difficult to the left hand side. It was we very difficult to negotiate a wire into the right ureter due to the severe ureteral tortuosity due to the horrific prolapse that the patient is experiencing. On the right-hand side we also had difficulty in placing a 7-[place] Citizen x 26 cm indwelling ureteral stent due to the anatomical distortion from the prolapse. Interpretation of retrograde ureteropyelography contrast was instilled in retrograde fashion bilaterally. There was very remarkable bilateral hydronephrosis noted. There was ureteral tortuosity and bilateral hydroureteronephrosis. At the end of the case, the stents were coiled in each kidney as well as bladder, but the entire bladder below the pubis due to the prolapse. Stones were noted as on the CT. The patient's bladder was drained. The cystoscope was withdrawn. Pelvic examination revealed a complete grade 4 prolapse of the cervix to outside the vagina. There was vaginal wall atrophy. The patient was then uneventfully reversed from the anesthesia and taken the to recovery room in stable condition. There were no complications to the procedure. She tolerated the procedure well. Plans will be to observe the patient overnight to ensure she is not spiking temperature and then we will plan to discharge her tomorrow on cultures and antibiotics. Next step in management is to bringing her back and perform lithotripsy on the stone noted on retrograde pyelogram. Rick Ayala MD [place]/MODL /[id number] cc: Darcy Felipe M.D. MTDChristy
[2019-12-24] VITALS (13 sets, daily range): BP systolic 97–168; BP diastolic 53–81
[2019-12-24 05:08] LABS: BASOPHILS % 0.5 % (0.0-1.0); EOSINOPHILS % 0.5 % (0.0-6.0); HEMATOCRIT 35.8 % (34.2-44.1); HEMOGLOBIN 11.7 g/dL (12.0-16.0); LYMPHOCYTES # (AUTO) 1.8 (1.0-3.2); LYMPHOCYTES % 20.5 % (18.0-39.1); MEAN CORPUSCULAR HEMOGLOBIN 31.7 pg (28-32); MEAN CORPUSCULAR HGB CONC 32.7 g/dL (31-35); MONOCYTES # (AUTO) 1.4 (0.2-0.8); NEUTROPHILS # (AUTO) 5.4 (2.1-6.9); NEUTROPHILS % 61.5 % (38.7-80.0); PLATELET COUNT 174 x10e3/uL (140-360); RED BLOOD COUNT 3.69 x10e6/uL (3.6-5.1); RED CELL DISTRIBUTION WIDTH 14.8 % (11.7-14.4)
[2019-12-24 05:27] LABS: ANION GAP 13.7 mmol/L (8-16); BLOOD UREA NITROGEN 21 mg/dL (7-26); BUN/CREATININE RATIO 29 (6-25); CALCIUM 8.8 mg/dL (8.4-10.2); CARBON DIOXIDE 27 mmol/L (22-29); CHLORIDE 104 mmol/L (98-107); CREATININE, SERUM 0.72 mg/dL (0.57-1.11); EST GLOMERULAR FILTRATION RATE > 60 ML/MIN (60-); GLUCOSE 101 mg/dL (74-118); POTASSIUM 3.7 mmol/L (3.5-5.1); SODIUM 141 mmol/L (136-145)
--- NOTE | 2019-12-24 06:50 | NUR ---
Received patient lying in bed with eyes open. Respiration even and unlabored without SOB. Call light in reach.
--- NOTE | 2019-12-24 07:11 | NUR ---
BSSR GIVEN TO LALITHA DARLING, PATIENT SEEN WALKING IN ROOM TO BATHROOM, GAIT STEADY, NO DISTRESS NOTED, CONTINUES TO C/O VAGINAL PAIN AND DISCOMFORT, STATES "I HAVE APPOINTMENT TO GO SEE MD LANDRY TOMORROW" "THEN i WILL BE BACK IN HOSPITAL MONDAY", PATIENT IVPATIENT DRESSING C/D/I, CALL LIGHT WITHIN REACH
[2019-12-24] MEDS: PRAVASTATIN 20 MG TAB PO SCH (08:34)
[2019-12-24] MEDS: SULFASALAZINE 500 MG TAB PO SCH ×2 (08:34→16:40)
[2019-12-24] MEDS: FAMOTIDINE 20 MG TAB PO SCH ×2 (08:34→16:40)
[2019-12-24] MEDS: PHENAZOPYRIDINE HCL 100 MG TAB PO SCH ×3 (08:35→18:39)
[2019-12-24] MEDS: LABETALOL HCL 100 MG TAB PO SCH ×2 (08:35→16:40)
[2019-12-24] MEDS: AMLODIPINE BESYLATE 5 MG TAB PO SCH ×2 (08:35→16:40)
[2019-12-24] MEDS: SERTRALINE HCL 100 MG TAB PO SCH (08:35)
[2019-12-24] MEDS: MEROPENEM 1GM 100 ML IV SCH ×3 (09:03→20:44)
[2019-12-24] MEDS: HYDRALAZINE HCL 20 MG/ML VIAL IV PRN (09:04)
--- NOTE | 2019-12-24 10:09 | Progress Note ---
DATE: SUBJECTIVE: The patient is seen and evaluated with the nurse in her room. Discussed with Dr. Sandy and discussed with Dr. Ayala, Urology. This is a 69-year-old female, very pleasant, who has a positive blood culture which showed gram-negative and a positive urine culture with E coli. Currently, sitting in a chair. No nausea, vomiting, fever, chills, chest pain, shortness of breath, cough, or rash. She still has dysuria and burning sensation. ALLERGIES: AMOXICILLIN, CLAVULANIC ACID, AND LISINOPRIL. VITAL SIGNS: Temperature is 97.5, temperature actually has improved since yesterday; pulse is 82; respirations 19; blood pressure 168/77. GENERAL: Alert and oriented, comfortable in chair, in no acute distress. CV: S1 and S2. CHEST: Equal expansion, clear to auscultation. No acute distress. ABDOMEN: Soft and nontender. No distention. HEENT: Moist. No pallor. No JVD. EXTREMITIES: Moves all. No acute findings. MEDICATIONS: Medication list reviewed. As far as Infectious Disease point of view, the patient is on meropenem. LABORATORY STUDIES: Hemoglobin 11.7, white blood cells 8.83, platelets 174, improved from 129. Creatinine 0.72. SEROLOGY: COVID test negative. Influenza A and B antigen and group A Strep screen are negative. MICROBIOLOGY: Urine cultures, E coli with many options for antibiotics. Blood culture showed gram-negative rods with sensitivity and identification pending. Throat culture was normal usual respiratory layla. The patient is status post retrograde pyelogram by Dr. Ayala and placement of bilateral stents. ASSESSMENT AND PLAN: 1. Gram-negative bacteremia. 2. Urinary tract infection. 3. Sepsis on admission. 4. Fever, resolved. 5. Leukocytosis, resolved. 6. Thrombocytopenia, improved. 7. Hypertension. 8. Electrolyte abnormalities. 9. Dysuria. 10. Debility. The patient is status post bilateral stent placement by Dr. Ayala and plan is for lithotripsy on Monday and the patient eventually hysterectomy and bladder lift. We will continue with antibiotic at this point. Please refer to the chart for more information as far as antibiotic management. This case was discussed with Dr. Sandy. Further management of this patient is based on daily findings on laboratory and physical examination. Currently, in no acute distress. Dictated by Demar Wheatley MD ROVERTO Hogan/TINA /[id number]
[2019-12-24] MEDS: ACETAMINOPHEN 325 MG TAB PO PRN (16:15)
[2019-12-24] MEDS: HYDRALAZINE HCL 25 MG TAB PO SCH ×2 (16:32→20:44)
--- NOTE | 2019-12-24 18:55 | NUR ---
Report given to night shift manager. Respiration even and unlabored without SOB. Call light in reach.
[2019-12-25] VITALS: BP 131/74
[2019-12-25 04:00] VITALS: BP 185/87
[2019-12-25 05:21] LABS: BASOPHILS # (AUTO) 0.1 (0.0-0.1); BASOPHILS % 0.7 % (0.0-1.0); EOSINOPHILS # (AUTO) 0.2 (0.0-0.4); EOSINOPHILS % 2.2 % (0.0-6.0); HEMATOCRIT 36.6 % (34.2-44.1); HEMOGLOBIN 11.9 g/dL (12.0-16.0); LYMPHOCYTES # (AUTO) 2.5 (1.0-3.2); LYMPHOCYTES % 29.9 % (18.0-39.1); MEAN CORPUSCULAR HEMOGLOBIN 31.7 pg (28-32); MEAN CORPUSCULAR HGB CONC 32.5 g/dL (31-35); MEAN CORPUSCULAR VOLUME 97.6 fL (81-99); MONOCYTES % 11.9 % (4.4-11.3); NEUTROPHILS # (AUTO) 4.6 (2.1-6.9); NEUTROPHILS % 53.9 % (38.7-80.0); PLATELET COUNT 220 x10e3/uL (140-360); RED BLOOD COUNT 3.75 x10e6/uL (3.6-5.1); RED CELL DISTRIBUTION WIDTH 14.8 % (11.7-14.4)
[2019-12-25 05:55] VITALS: BP 185/87
[2019-12-25] MEDS: HYDRALAZINE HCL 25 MG TAB PO SCH ×2 (05:59→09:12)
[2019-12-25 06:01] VITALS: BP 185/87
[2019-12-25 06:05] LABS: ANION GAP 9.5 mmol/L (8-16); BLOOD UREA NITROGEN 22 mg/dL (7-26); BUN/CREATININE RATIO 32 (6-25); CALCIUM 8.7 mg/dL (8.4-10.2); CARBON DIOXIDE 27 mmol/L (22-29); CHLORIDE 107 mmol/L (98-107); CREATININE, SERUM 0.69 mg/dL (0.57-1.11); EST GLOMERULAR FILTRATION RATE > 60 ML/MIN (60-); GLUCOSE 101 mg/dL (74-118); POTASSIUM 3.5 mmol/L (3.5-5.1); SODIUM 140 mmol/L (136-145)
--- NOTE | 2019-12-25 07:00 | NUR ---
RCD PT AT BED PT IS ALERT AND ORIENTED PT RESTING ON BED NO SIGNS OF ANY DISTRESS NOTED IV PATENT BY SALINE FLUSH BED LOW AND LOCKED CALL LIGHT IN REACH
[2019-12-25] MEDS: FAMOTIDINE 20 MG TAB PO SCH (07:30)
[2019-12-25 07:44] VITALS: BP 150/76
[2019-12-25 08:38] VITALS: BP 150/76
[2019-12-25] MEDS: AMLODIPINE BESYLATE 5 MG TAB PO SCH (09:00)
[2019-12-25] MEDS: PRAVASTATIN 20 MG TAB PO SCH (09:00)
[2019-12-25] MEDS: LABETALOL HCL 100 MG TAB PO SCH (09:00)
[2019-12-25] MEDS: SERTRALINE HCL 100 MG TAB PO SCH (09:00)
[2019-12-25] MEDS: MEROPENEM 1GM 100 ML IV SCH (09:00)
[2019-12-25] MEDS: SULFASALAZINE 500 MG TAB PO SCH (09:00)
[2019-12-25] MEDS: PHENAZOPYRIDINE HCL 100 MG TAB PO SCH (09:00)
--- NOTE | 2019-12-25 09:59 | Progress Note ---
DATE: Infectious Disease SUBJECTIVE: This is a 69-year-old female, this is a patient of Dr. Holloway. The patient is seen and evaluated. No new complaints. Discussed with Dr. Sandy. Discussed with the patient. REVIEW OF SYSTEMS: No nausea, vomiting, fever, chills, chest pain, shortness of breath, headache, sweats, diarrhea. OBJECTIVE: VITAL SIGNS: Blood pressure 150/76, temperature is 98.9, pulse is 76, respiration 18. GENERAL: Alert and oriented, sitting in chair, in no acute distress. CV: S1, S2. CHEST: Equal expansion, clear to auscultation. ABDOMEN: Soft and nontender. No distention. HEENT: Moist. No pallor. No JVD. EXTREMITIES: Moves all. No significant edema. MEDICATIONS: Medication list reviewed. As far as Infectious Disease point of view, the patient is on meropenem. LABORATORY STUDIES: Hemoglobin of 11.9, white blood cells 8.49, platelet count of 220. Sodium 140, potassium 3.5, creatinine 0.69. Serology: COVID-19 not detected. Influenza A and B antigen negative. Group A strep screen negative. MICROBIOLOGY: Urine culture E coli, pansensitive except for ampicillin and Bactrim. Blood culture also E coli with the same sensitivity. RADIOLOGY STUDIES: No new radiology studies. ASSESSMENT AND PLAN: 1. Escherichia coli bacteremia, pansensitive. 2. Urinary tract infection. 3. Sepsis on admission. 4. Leukocytosis, resolved. 5. Fever, resolved. 6. Hypertension. 7. Dysuria. 8. Thrombocytopenia, resolved. 9. Debility. The patient is status post stent by Urology. The patient in need of lithotripsy. Follow up as outpatient for lithotripsy. Discussed with Dr. Sandy in details. Please refer to the chart up with a prescription in the chart for Keflex 500 mg p.o. t.i.d. for 3 weeks. The patient is to follow up with Dr. Sandy, Infectious Disease in 2 weeks. Again, prescription is placed in the chart. Please refer to the chart for more information. Dictated by Demar Wheatley PA-C (Al) Johnny Sandy MD /MODL /[id number]
[2019-12-25] MEDS ORDERED: KEFLEX500 MG PO (10:11)
[2019-12-25] MEDS ORDERED: DITROPAN XL5 MG PO (10:11)
[2019-12-25] MEDS ORDERED: TYLENOL WITH C1 EACH PO (10:11)
--- NOTE | 2019-12-25 10:28 | NUR ---
IMM letter delivered and explained to pt. She states she is ready to discharge. Copy left at bedside for pt. Signed copy placed in chart.
--- NOTE | 2019-12-25 11:10 | NUR ---
PT WENT HOME IN SAFE CONDITION
--- NOTE | 2019-12-30 12:27 | Discharge Summary ---
ADMISSION DIAGNOSES: Urinary tract infection with hydroureteronephrosis, ureterovaginal prolapse, hypokalemia, hypertension, anxiety, depression, rheumatoid arthritis. DISCHARGE DIAGNOSES: Urinary tract infection with hydroureteronephrosis, ureterovaginal prolapse, hypokalemia, hypertension, anxiety, depression, rheumatoid arthritis, Escherichia coli present on admission, Escherichia coli bacteremia present on admission, rule out coronavirus disease 2019, rule out flu, rule out Strep. HISTORY: Hypertension, anxiety, depression, RA, GERD, ureterovaginal prolapse. SURGICAL HISTORY: Right inguinal hernia repair, thyroid surgery. FAMILY HISTORY: The patient's mother has diabetes. The patient's father had a stroke. SOCIAL HISTORY: The patient admits to occasional alcohol use and occasional vape use. HOSPITAL COURSE: A 69-year-old female with past medical history of prolapse, admits with complaints of dysuria and body aches since Monday. The symptoms resolved Monday, then returned on Monday. She denies cough, fever, hematuria, sick contacts, and recent travel. She has a hysterectomy planned with bladder sling in February of this year. On admission, chest x-ray was negative. CT of the abdomen and pelvis showed moderate right-sided hydroureteronephrosis, persistent stable appearing moderate left-sided hydroureteronephrosis. There is no evidence for obstructive calculus. Findings may be secondary to urinary bladder prolapse and/or extrinsic compression of the at UVJ by bulky uterine fibroids, stable appearing nonobstructive subcentimeter renal calculi again, cholelithiasis without evidence of cholecystitis. Urine culture came back positive for E coli. The patient was started on Merrem per Infectious Disease. COVID came back negative. Flu and Strep also came back negative. Urology wanted to keep the patient and do bilateral stent with cystoscopy. COTTAGE PARENT was consulted to see if the hysterectomy needed to be scheduled sooner. He did say that it needed to be soon, but it was not urgent and could be done later. So, the hysterectomy and bladder sling will be done later when Urology and COTTAGE PARENT are available. After the stent, the patient's blood culture came back positive for E coli, and per Infectious Disease, the patient can discharge home with 63 Keflex q.8 hours, Ditropan, and Tylenol No. 3. She will follow up on Monday with Urology for lithotripsy outpatient as previously scheduled. The patient understands discharge instructions and agrees to plan. Vital signs stable, the patient afebrile. Dictated by Roxie Wolff, JOY MD MARCEL Garay/MODL /[id number]
== END 2019-12-25 11:11 | disposition home or self-care (01) | DRG 854 ==
LOC: ER 11:10 → ERHOLD 13:12 → MED/SURG2 15:23
PROVIDERS: ADMIT Internal Medicine; ATTEND Internal Medicine
PROC: BT141ZZ Fluoroscopy of Kidneys, Ureters and Bladder using Low Osmolar Contrast (ICD-10-PCS; 2019-12-23)
PROC: 0T788DZ Dilation of Bilateral Ureters with Intraluminal Device, Via Natural or Artificial Opening Endoscopic (ICD-10-PCS; principal; 2019-12-23 14:30)
DX: A41.9 Sepsis, unspecified organism (principal); N13.6 Pyonephrosis; E87.1 Hypo-osmolality and hyponatremia; N12 Tubulo-interstitial nephritis, not specified as acute or chronic; I10 Essential (primary) hypertension; F41.9 Anxiety disorder, unspecified; F32.9 Major depressive disorder, single episode, unspecified; F17.290 Nicotine dependence, other tobacco product, uncomplicated; E87.6 Hypokalemia; R31.29 Other microscopic hematuria; E66.9 Obesity, unspecified; Z68.27 Body mass index [BMI] 27.0-27.9, adult; B96.20 Unspecified Escherichia coli [E. coli] as the cause of diseases classified elsewhere; N95.2 Postmenopausal atrophic vaginitis; M06.9 Rheumatoid arthritis, unspecified; Z87.442 Personal history of urinary calculi; N81.4 Uterovaginal prolapse, unspecified; D69.6 Thrombocytopenia, unspecified; E87.8 Other disorders of electrolyte and fluid balance, not elsewhere classified; D25.9 Leiomyoma of uterus, unspecified
CPT/HCPCS: 36415; 71045; 74176; 74420; 80048; 80053; 81001; 83036; 83518; 83735; 83970; 84443; 84484; 84550; 85025; 87040; 87070; 87071; 87086; 87186; 87205; 87400; 87635; 99284; C1758; C2617; J0360; J1100; J2001; J2405; J3480; J7030; J7050

== ENCOUNTER → 2019-12-27 | Day surgery (SDC) | payer MEDICARE, BC ==
[~2019-12-27] MED LIST changes: +B&O 60MG R/S 60 MG SUPP PR ONE; +DEXAMETHASONE SOD PHOS INJ 4 MG/ML VIAL ONE; +FENTANYL CITRATE/PF 100MCG/2 ML INJ ONE; +GENTAMICIN 80MG/NS 100 ML 200 ML IV ONE; +IOPAMIDOL 300MG/ML 50ML INFUS..BTL IV ONE; +LIDOCAINE HCL 2% LOCAL INJ 5 ML SDV VIAL INJ ONE; +MIDAZOLAM HCL 2 MG/2 ML VIAL ONE; +ONDANSETRON HCL INJ 2MG/ML 2ML 2 MG/ML VIAL ONE; +PROPOFOL IV EMULSION 10 MG/ML 20 ML VIAL ONE; +SEVOFLURANE INHAL SOLN 250 ML PEN BTL ONE
[2019-12-27 09:45] VITALS: BP 140/79
--- NOTE | 2019-12-27 09:51 | Operative Report ---
DATE OF PROCEDURE: 12/27/2019 SURGEON: Rick Ayala MD PREOPERATIVE DIAGNOSIS: Bilateral nephrolithiasis. POSTOPERATIVE DIAGNOSIS: Bilateral nephrolithiasis. OPERATION PERFORMED: 1. Staged left-sided extracorporeal shockwave lithotripsy. 2. Supervision of fluoroscopy, no radiologist present. ANESTHESIA: General. COMPLICATIONS: None. CLINICAL SUMMARY: Luisa Rodriguez is a 69-year-old woman with bilateral nephrolithiasis. She has bilateral indwelling ureteral stents. There was severe hydroureteronephrosis due to her severe total pelvic prolapse. She is brought for a staged procedure. She has had a urinary tract infection and urosepsis and was been treated with culture specific antibiotics and was followed by Infectious Disease's product support consultant who concurs with proceeding with the surgery today. She is aware of the risks of bleeding, infection, injury to adjacent structures. She knows she will need additional procedures and she elected to proceed. This procedure is not elective. This procedure is done during the COVID-19 crisis due to the fact that the patient has kidney stones with potential to increase and cause further deterioration of the patient's left kidney function. Preservation of this kidney function is requiring us to perform multiple procedures on this massive stone in order to be able to clear it so that the patient's kidney may be rehabilitated and hopefully prevent loss of this kidney. The patient understands the risk of coronavirus infection caused by leaving his house is outweighed by the risk of damage to and deteriorations of her kidneys. She also wants to proceed and be one step closer to eliminating the need for her stents. OPERATIVE PROCEDURE IN DETAIL: Informed consent was verified. Luisa Rodriguez was properly identified taken to the operating room, placed on the lithotripsy table in supine position. Anesthesia was uneventfully begun. The patient's left upper pole nephrolithiasis was localized with biplanar fluoroscopy. A total of 2379 shocks were delivered with excellent fragmentation noted. No longer there was the stone visible there was just the dust of the fragments and therefore we elected to discontinue the procedure at that shock number. The patient was then uneventfully reversed from anesthesia and taken to recovery room in stable condition. There were no complications of the procedure. The patient tolerated the procedure well. Plans will be to return the patient to the operating room in several weeks to perform a right ESWL. Eventually, we will perform a sacral colpopexy and colposuspension in conjunction with the Gynecology service performing a total abdominal hysterectomy, bilateral salpingo-oophorectomy. MD ADAN Crane/TINA /[id number] cc: DO DEE DEE Hernandez
--- NOTE | 2019-12-27 10:14 | Diagnostic Imaging Report ---
Exam: KUB - 2 views Indication: Preoperative Comparison: CT abdomen and pelvis of 12/20/2019 Findings: Right and left nephroureteral stents in place. 2 mm right lower pole renal calculi. No other radiographically apparent renal calculi. Calcified uterine fibroids. No acute osseous injury. Degenerative changes of the visualized spine. Nonobstructive bowel gas pattern. No free air. Impression: Right and left internal nephroureteral stents in place. Small right lower pole renal calculi. Signed by: Kim Garcia MD on 12/27/2019 10:11 AM
== END | disposition home or self-care (01) ==
LOC: OR 05:31
PROVIDERS: ATTEND Urology
DX: N20.0 Calculus of kidney (principal); Z46.6 Encounter for fitting and adjustment of urinary device; N13.30 Unspecified hydronephrosis; N39.0 Urinary tract infection, site not specified; N39.46 Mixed incontinence; N32.81 Overactive bladder; N95.2 Postmenopausal atrophic vaginitis; N81.4 Uterovaginal prolapse, unspecified; R35.1 Nocturia; N81.6 Rectocele; R80.9 Proteinuria, unspecified; N81.89 Other female genital prolapse; I10 Essential (primary) hypertension; I25.10 Atherosclerotic heart disease of native coronary artery without angina pectoris; M06.9 Rheumatoid arthritis, unspecified; I25.2 Old myocardial infarction; F17.210 Nicotine dependence, cigarettes, uncomplicated; Z88.0 Allergy status to penicillin; Z88.8 Allergy status to other drugs, medicaments and biological substances; Z79.82 Long term (current) use of aspirin
CPT/HCPCS: 50590; 74018; 93005; J1100; J1580; J2001; J2250; J2405; J2704; J3010

== ENCOUNTER → 2020-01-15 | Day surgery (SDC) | payer MEDICARE, BC ==
--- NOTE | 2020-01-10 13:42 | Diagnostic Imaging Report ---
EXAMINATION: CHEST 2 VIEWS INDICATION: Pre-operative COMPARISON: None FINDINGS: LINES/TUBES:None LUNGS:The lungs are well-inflated. No focal consolidation or pulmonary edema. 5 mm high density nodular opacity at the right lung apex, likely a calcified granuloma. PLEURA:No pleural effusion or pneumothorax. MEDIASTINUM:The cardiomediastinal silhouette appears normal in size and shape. Atherosclerotic calcifications of the thoracic aorta. BONES/SOFT TISSUES:No acute osseous injury. ABDOMEN:No free air under the diaphragm. IMPRESSION: No focal pneumonia or pulmonary edema. 5 mm I density nodular opacity at the right lung apex, most likely a calcified granuloma. Signed by: Kim Garcia MD on 01/10/2020 1:39 PM
[~2020-01-15] MED LIST changes: -B&O 60MG R/S 60 MG SUPP PR ONE; +EPHEDRINE SULFATE INJ 50 MG/ML VIAL ONE; -GENTAMICIN 80MG/NS 100 ML 200 ML IV ONE; -IOPAMIDOL 300MG/ML 50ML INFUS..BTL IV ONE; +MEROPENEM 1GM 100 ML IV ONE
[2020-01-15 09:30] VITALS: BP 125/71
--- NOTE | 2020-01-15 12:05 | Operative Report ---
DATE OF PROCEDURE: 01/15/2020 SURGEON: Rick Ayala MD PREOPERATIVE DIAGNOSIS: Right nephrolithiasis. POSTOPERATIVE DIAGNOSIS: Right nephrolithiasis. OPERATIONS PERFORMED: 1. Staged right-sided extracorporeal shockwave lithotripsy. 2. Supervision of fluoroscopy, no radiologist present. ANESTHESIA: General. COMPLICATIONS: None. CLINICAL SUMMARY: Luisa Mobley is a 69-year-old woman with bilateral nephrolithiasis. She has bilateral indwelling ureteral stents due to bilateral hydroureteronephrosis, due to severe grade 4 uterine prolapse. The patient had a left ESWL. She is brought for her right ESWL. She is aware of the risks of bleeding, infection, and injury to adjacent structures. She understands she will need additional procedures and she elected to proceed. The patient is uncomfortable from her severe prolapse and wants her hysterectomy and sacral colpopexy as soon as possible. We posted her for two days from now. This procedure is not elected. The patient has stones and symptoms and has had urosepsis and complicated urinary tract infection and has presumed infected stones. If not performed this procedure would cause stone growth and additional infections. She also has temporary indwelling ureteral stents that require followup and removal the sooner the better due to the fact that there are foreign bodies. Therefore, we are performing this procedure during the COVID-19 emergency situation as it is not elective. OPERATIVE PROCEDURE IN DETAIL: Informed consent was verified. Luisa Mobley was properly identified taken to the operating room, placed on the lithotripsy table in supine position. Anesthesia was uneventfully begun. The patient's right lower pole nephrolithiasis was localized with biplanar fluoroscopy. A total of 3000 shocks were delivered with fragmentation noted. The patient was then uneventfully reversed from anesthesia and taken to recovery room in stable condition. There were no complications to procedure. She tolerated the procedure well. Plans will be to return the patient to the operating room in two days to perform total abdominal hysterectomy, bilateral salpingo-oophorectomy, and mesh sacral colpopexy. Rick Ayala MD OH/MODL /[id number] cc: Will Chen DO
== END | disposition home or self-care (01) ==
LOC: OR 05:30
PROVIDERS: ATTEND Urology
DX: N20.0 Calculus of kidney (principal); Z96.0 Presence of urogenital implants; N13.30 Unspecified hydronephrosis; N81.4 Uterovaginal prolapse, unspecified; N39.46 Mixed incontinence; N81.89 Other female genital prolapse; N95.2 Postmenopausal atrophic vaginitis; R35.1 Nocturia; N81.6 Rectocele; R80.9 Proteinuria, unspecified; N39.0 Urinary tract infection, site not specified; N32.81 Overactive bladder; I10 Essential (primary) hypertension; I25.2 Old myocardial infarction; F17.200 Nicotine dependence, unspecified, uncomplicated; Z88.0 Allergy status to penicillin; Z88.8 Allergy status to other drugs, medicaments and biological substances; Z01.812 Encounter for preprocedural laboratory examination; Z01.818 Encounter for other preprocedural examination; Z11.59 Encounter for screening for other viral diseases; Z79.82 Long term (current) use of aspirin
CPT/HCPCS: 50590; 71046; 86850; 86900; 87635 ×2; J1100; J2001; J2185; J2250; J2405; J2704; J3010

== ENCOUNTER 2020-01-17 11:49 | Inpatient (IN) | payer MEDICARE, BC ==
[~2020-01-17] VITALS: Ht 154.9 cm; Wt 66.7 kg
[~2020-01-17 11:49] MED LIST changes: -CLINDAMYCI300 MG/51 IV; -Calcium Carbonate 500MG Chew PO; -DEXAMETHASONE SOD PHOS INJ 4 MG/ML VIAL ONE; -EPHEDRINE SULFATE INJ 50 MG/ML VIAL ONE; -FENTANYL CITRATE/PF 100MCG/2 ML INJ ONE; -LEVAQUIN500 MG IV; -LIDOCAINE HCL 2% LOCAL INJ 5 ML SDV VIAL INJ ONE; -MELATONIN5 M2 PO; -MEROPENEM 1GM 100 ML IV ONE; -MIDAZOLAM HCL 2 MG/2 ML VIAL ONE; -ONDANSETRON HCL INJ 2MG/ML 2ML 2 MG/ML VIAL ONE; -PROPOFOL IV EMULSION 10 MG/ML 20 ML VIAL ONE; -SEVOFLURANE INHAL SOLN 250 ML PEN BTL ONE; -SIMETHICONE80 MG PO; -TYLENOL # 31 EA PO
[2020-01-17] MEDS ORDERED: LEVOFLOXACIN 500MG/D5W 100ML 100 ML IV ONE (12:07)
[2020-01-17] MEDS ORDERED: CLINDAMYCIN 600MG / 50ML 50 ML IV ONE (12:07)
[2020-01-17] MEDS ORDERED: MIDAZOLAM HCL 2 MG/2 ML VIAL ONE (13:53)
[2020-01-17] MEDS ORDERED: FENTANYL CITRATE/PF 100MCG/2 ML INJ ONE (13:53)
[2020-01-17] MEDS ORDERED: BACITRACIN 50,000 UNIT VIAL ONE (14:19)
[2020-01-17] MEDS ORDERED: DIPHENHYDRAMINE HCL INJ 50 MG/ML VIAL IM PRN (17:15)
[2020-01-17] MEDS ORDERED: MORPHINE SULFATE 1 MG/ML 30ML PCA IV PRN (17:15)
[2020-01-17] MEDS ORDERED: ONDANSETRON HCL INJ 2MG/ML 2ML 2 MG/ML VIAL IV PRN (17:15)
[2020-01-17] MEDS ORDERED: NALOXONE HCL INJ 0.4 MG/ML AMP IV PRN (17:15)
[2020-01-17] MEDS ORDERED: HYDROMORPHONE 1MG/1ML INJ ONE (17:43)
[2020-01-17] MEDS ORDERED: ACETAMINOPHEN 1000 MG/100 ML IV PRN (18:00)
[2020-01-17] MEDS ORDERED: PROPOFOL IV EMULSION 10 MG/ML 20 ML VIAL ONE (18:37)
[2020-01-17] MEDS ORDERED: DEXAMETHASONE SOD PHOS INJ 4 MG/ML VIAL ONE (18:37)
[2020-01-17] MEDS ORDERED: ROCURONIUM BROMIDE 10 MG/ML 5ML VIAL IV ONE (18:37)
[2020-01-17] MEDS ORDERED: LIDOCAINE HCL 2% LOCAL INJ 5 ML SDV VIAL INJ ONE (18:37)
[2020-01-17] MEDS ORDERED: SEVOFLURANE INHAL SOLN 250 ML PEN BTL ONE (18:37)
[2020-01-17] MEDS ORDERED: ONDANSETRON HCL INJ 2MG/ML 2ML 2 MG/ML VIAL ONE (18:37)
[2020-01-17 18:51] VITALS: BP 155/83
--- NOTE | 2020-01-17 18:54 | NUR ---
Received patient from PACU to the unit @ 1830. Patient in stable condition, no s/s of distress noted. Patient on an [employer] pump with morphine. Dressing to the lower abdomen C/D/I. @0 G to the left arm with fluids infusing site is asymptomatic and patent. Transparent dressing to IV site C/D/I. Bed in lowest position and locked. Call light within reach.
--- NOTE | 2020-01-17 19:21 | NUR ---
RECEIVED PT IN BED AOX3 .PT HAS ALFREDO WITH DRESSING DRY AND INTACT .PT HAS PURCHASE PRICE ANALYST MORPHINE .PT IS IN STABLE CONDITIONS .CALL LIGHT WITH IN REACH .CONTINUE TO MONITOR
[2020-01-17 19:35] VITALS: BP 155/83
[2020-01-17] MEDS: D5.45%NS/KCL 20MEQ 1,000 ML IV SCH (19:45)
[2020-01-17 20:34] VITALS: BP 164/77
[2020-01-17 21:31] VITALS: BP 164/77
--- NOTE | 2020-01-17 22:14 | Operative Report ---
DATE OF PROCEDURE: 01/17/2020 SURGEON: Rene Walton MD PREOPERATIVE DIAGNOSES: 1. Grade 4 uterine prolapse. 2. Recurrent urinary tract infections. 3. Bilateral hydronephrosis. 4. History of urosepsis. 5. Status post bilateral lithotripsy. 6. Hematuria. 7. Fibroid uterus. POSTOPERATIVE DIAGNOSES: 1. Grade 4 uterine prolapse. 2. Recurrent urinary tract infections. 3. Bilateral hydronephrosis. 4. History of urosepsis. 5. Status post bilateral lithotripsy. 6. Hematuria. 7. Fibroid uterus. TITLE OF PROCEDURE: 1. Total abdominal hysterectomy. 2. Bilateral salpingo-oophorectomy. PSYCHOLOGY ASSISTANT: Rick Ayala MD. Additionally, Dr. Ayala performed the procedure mesh sacrocolpopexy and Reynolds bladder suspension with the surgeon being Dr. Ayala and the accounts receivable assistant Dr. Rene Walton. ANESTHESIA: General with Dr. Chance and Roberta hardware sales assistant. INDICATIONS FOR OPERATION: The patient is a 69-year-old, para 2 with a complete uterovaginal prolapse. When I first examined her, her uterus and vagina were hanging outside of the introitus. This was causing her to have recurrent UTIs, bilateral hydronephrosis and causing her to have urosepsis. She also had a history of kidney stones and has had bilateral lithotripsy and hematuria. She was also incidentally found to have a fibroid uterus with large, approximately 12 week size uterus with calcified fibroids. She is therefore taken to the operating room at this time. FINDINGS AT SURGERY: There was a fourth degree prolapse of the uterus and vagina, and the uterus was 12-week size nodular fibroid uterus with calcifications. DESCRIPTION OF PROCEDURE: The patient was taken to the operating room, placed on the table in a supine position. General anesthesia was administered. She was then placed in the frog-leg position. A Interiano catheter was placed in the bladder for constant drainage. The abdomen and vagina were prepped and draped in the usual sterile manner. Proceeded through a Pfannenstiel incision, cutting through the skin and subcutaneous tissue down to the fascia, which was then opened laterally to the edges of exposure. The rectus muscles were then dissected off the fascia and the rectus muscles were split in the midline, and then the peritoneum was opened at the superior edge of exposure and opened inferiorly to the bladder reflection. Then, a [place] retractor was placed and the bowel was packed away, and then the uterus was noted to be enlarged, very nodular and calcified, very hard nodular tissue, but it was very mobile and it was brought up. Then, once the bowels were completely packed, we proceeded with hysterectomy. The round ligaments on each side were clamped with the LigaSure instrument, coagulated and cut, and then a window was made in the broad ligament on each side, and then the infundibulopelvic ligament on each side was close to the ovary as possible was clamped with the LigaSure instrument, coagulated and cut, freeing up the tubes and ovaries for removal. There was good hemostasis on the right side. There was one bleeder on the left side, this was grasped with a right angle clamp and tied off with 0 Vicryl suture. At this point, the uterine vessels were skeletonized by dissecting the broad ligament. At this point, the LigaSure was placed over the uterine vessels, clamping, coagulating and cutting. There was good hemostasis noted and at this point, the bladder flap was created by dissecting the vesicouterine fascia off the uterus using both sharp dissection with the Metzenbaum scissors, and the bladder was pushed away. Following this, the uterus was palpated and the cervix was found to be quite long and the uterosacral ligaments were then clamped with Zeppelin clamps, cut, and then tied off with 0 Vicryl suture. Then, the cardinal ligament was taken on each side with straight Zeppelin clamps and multiple bites, clamping, cutting, and tying off with [address]. [address] Ayala dissected the bladder further away and brought it down, at this point, we were able to identify the cervix and the extent of it, and a couple of more bites were required to get to the vaginal angle, clamping, cutting, and tying off with 0 Vicryl suture. Then, right angle Zeppelin clamps were placed over the vaginal angles on each side. A Zaina scissors was used to cut the uterine specimen away, which was sent with the tubes and ovaries to pathology for definitive diagnosis. Then, the vaginal cuff was inspected. We irrigated and suctioned, and placed a Betadine for back to hemostasis, irrigated again and then proceeded to close the cuff with [id number] stitches of one chromic suture. There was good hemostasis noted on the vaginal cuff and the sutures were marked with hemostats for retraction and identification. Then, Dr. Ayala took over and proceeded to perform his mesh sacrocolpopexy and his Reynolds bladder suspension. Please see his operative report for details. After this, we proceeded to close. There were no complications noted. Estimated blood loss was [address] Ayala's report on the closure of the abdomen. The Interiano catheter was draining clear urine at the end the procedure, and the counts were correct x2. The patient tolerated the procedure well, was transferred from the operating room to the recovery room in stable condition. MD ANTONY De Luna/TINA /[id number] cc: Rick Ayala MD MTDD
[2020-01-17] MEDS: CLINDAMYCIN 300MG 50 ML IV SCH (22:33)
[2020-01-17 23:40] VITALS: BP 139/76
[2020-01-18] VITALS (8 sets, daily range): BP systolic 137–161; BP diastolic 66–79
[2020-01-18] MEDS: D5.45%NS/KCL 20MEQ 1,000 ML IV SCH ×3 (01:15→13:24)
[2020-01-18 05:38] LABS: BASOPHILS % 0.3 % (0.0-1.0); EOSINOPHILS # (AUTO) 0.1 (0.0-0.4); EOSINOPHILS % 1.4 % (0.0-6.0); HEMATOCRIT 32.3 % (34.2-44.1); HEMOGLOBIN 10.2 g/dL (12.0-16.0); LYMPHOCYTES # (AUTO) 1.7 (1.0-3.2); LYMPHOCYTES % 19.2 % (18.0-39.1); MEAN CORPUSCULAR HEMOGLOBIN 31.2 pg (28-32); MEAN CORPUSCULAR HGB CONC 31.6 g/dL (31-35); MEAN CORPUSCULAR VOLUME 98.8 fL (81-99); MONOCYTES # (AUTO) 0.5 (0.2-0.8); MONOCYTES % 5.8 % (4.4-11.3); NEUTROPHILS # (AUTO) 6.3 (2.1-6.9); PLATELET COUNT 146 x10e3/uL (140-360); RED BLOOD COUNT 3.27 x10e6/uL (3.6-5.1); RED CELL DISTRIBUTION WIDTH 15.6 % (11.7-14.4)
[2020-01-18] MEDS: CLINDAMYCIN 300MG 50 ML IV SCH ×3 (05:59→21:26)
[2020-01-18 06:10] LABS: ANION GAP 9.6 mmol/L (8-16); BLOOD UREA NITROGEN 7 mg/dL (7-26); BUN/CREATININE RATIO 10 (6-25); CALCIUM 8.6 mg/dL (8.4-10.2); CARBON DIOXIDE 26 mmol/L (22-29); CHLORIDE 106 mmol/L (98-107); CREATININE, SERUM 0.67 mg/dL (0.57-1.11); EST GLOMERULAR FILTRATION RATE > 60 ML/MIN (60-); GLUCOSE 130 mg/dL (74-118); POTASSIUM 3.6 mmol/L (3.5-5.1); SODIUM 138 mmol/L (136-145)
--- NOTE | 2020-01-18 06:35 | NUR ---
PT RESTING .PAIN LEVEL 6 CROWN ATTACHER MORPHINE IS INFUSING .CALL LIGHT WITH IN REACH .CONTINUE TO MONITOR
--- NOTE | 2020-01-18 07:02 | NUR ---
BEDSIDE REPORT GIVEN TO THE ONCOMING NURSE
--- NOTE | 2020-01-18 08:08 | NUR ---
The pt is in bed awake at rounding an reports pain 5/10 with functioning FINANCIAL REPORTING MANAGER.
--- NOTE | 2020-01-18 08:59 | NUR ---
PT ASKED ABOUT THE POSSIBILITY OF GETTING SOME ONE TO BE HOME JUST TO BE WITH HER TO MAKE SURE SHE WONT FALL ETC.. UNTIL SHE RECOVER COMPLETELY. SW TOLD HER INSURANCE WILL NOT PAY FOR IT, SHE MAY HAVE TO USE HER OWN RESOURCES-FAMILY/FRIENDS.PROVIDED INFORMATION ABOUT MEDICARE SAVINGS PROGRAM SHE APPEARS TO QUALIFY.
[2020-01-18] MEDS: HYDRALAZINE HCL 25 MG TAB PO SCH ×3 (09:00→21:19)
[2020-01-18] MEDS: AMLODIPINE BESYLATE 5 MG TAB PO SCH ×2 (09:00→17:21)
[2020-01-18] MEDS: LABETALOL HCL 100 MG TAB PO SCH ×2 (09:00→17:22)
[2020-01-18] MEDS: PRAVASTATIN 20 MG TAB PO SCH (09:00)
[2020-01-18] MEDS ORDERED: HYDRALAZINE HCL 20 MG/ML VIAL IV PRN (09:00)
[2020-01-18] MEDS: SERTRALINE HCL 100 MG TAB PO SCH (09:00)
[2020-01-18] MEDS ORDERED: ACETAMINOPHEN 325 MG TAB PO PRN (09:00)
[2020-01-18] MEDS ORDERED: MELATONIN 5 MG TABLET PO PRN (09:00)
--- NOTE | 2020-01-18 10:59 | NUR ---
The pt. called to ask for something to drink and was advised that the surgeon does not want her to have anything to eat or drink until he comes in to see her. She is unhappy with this info and refuses to complete her I S usage.
[2020-01-18] MEDS: LEVOFLOXACIN 500MG/D5W 100ML 100 ML IV SCH (11:28)
[2020-01-18] MEDS ORDERED: MORPHINE SULFATE 1 MG/ML 30ML PCA IV PRN (11:30)
[2020-01-18] MEDS: PANTOPRAZOLE SOD 40 MG TABEC PO SCH (17:21)
[2020-01-18] MEDS: DOCUSATE SODIUM 100 MG CAP PO SCH (17:21)
--- NOTE | 2020-01-18 19:00 | NUR ---
RECEIVED THE PATIENT IN REPORT.LYEING IN THE BED.IV FLUID RUNNING.STABLE CONDITION.ON SUPPLIER QUALITY MANAGER MORPHINE.
--- NOTE | 2020-01-18 20:50 | NUR ---
Assessment done.no resp,distress.abd pain voiced 01/18.dressing in place.assisted to sit on the bed.refused to ambulate.uses ics.educate the patient to support abd with pillow and take deep breathing verbalized understanding.bed locked and in lowest position.phone and call light within reach.instructed to call for assistance as needed.
--- NOTE | 2020-01-18 23:25 | NUR ---
Interiano care given.tolerate well.stable condition.
[2020-01-19] VITALS (7 sets, daily range): BP systolic 105–160; BP diastolic 59–88
[2020-01-19] MEDS: D5.45%NS/KCL 20MEQ 1,000 ML IV SCH ×4 (01:53→21:07)
--- NOTE | 2020-01-19 05:15 | NUR ---
Assisted to sit on the side of the bed for 5mts.
[2020-01-19] MEDS: CLINDAMYCIN 300MG 50 ML IV SCH ×3 (05:36→22:00)
[2020-01-19 05:49] LABS: BASOPHILS % 0.4 % (0.0-1.0); EOSINOPHILS # (AUTO) 0.2 (0.0-0.4); EOSINOPHILS % 2.2 % (0.0-6.0); HEMOGLOBIN 10.8 g/dL (12.0-16.0); LYMPHOCYTES # (AUTO) 1.5 (1.0-3.2); LYMPHOCYTES % 15.5 % (18.0-39.1); MEAN CORPUSCULAR HGB CONC 31.8 g/dL (31-35); MEAN CORPUSCULAR VOLUME 100.9 fL (81-99); MONOCYTES # (AUTO) 0.9 (0.2-0.8); MONOCYTES % 9.2 % (4.4-11.3); NEUTROPHILS # (AUTO) 6.8 (2.1-6.9); NEUTROPHILS % 72.3 % (38.7-80.0); PLATELET COUNT 145 x10e3/uL (140-360); RED BLOOD COUNT 3.37 x10e6/uL (3.6-5.1); RED CELL DISTRIBUTION WIDTH 15.5 % (11.7-14.4)
[2020-01-19] MEDS: ONDANSETRON HCL INJ 2MG/ML 2ML 2 MG/ML VIAL IV PRN (06:07)
--- NOTE | 2020-01-19 06:07 | NUR ---
Assisted to ambulates in the room.passes gas.c/o nausea.medicated with zofran 4mgiv.now sitting on the chair.refused to put mary grace morales
[2020-01-19 06:15] LABS: ANION GAP 13.5 mmol/L (8-16); BLOOD UREA NITROGEN < 5 mg/dL (7-26); BUN/CREATININE RATIO 8 (6-25); CARBON DIOXIDE 24 mmol/L (22-29); CHLORIDE 105 mmol/L (98-107); CREATININE, SERUM 0.64 mg/dL (0.57-1.11); EST GLOMERULAR FILTRATION RATE > 60 ML/MIN (60-); GLUCOSE 144 mg/dL (74-118); POTASSIUM 3.5 mmol/L (3.5-5.1); SODIUM 139 mmol/L (136-145)
--- NOTE | 2020-01-19 07:00 | NUR ---
bedside shift report received pt in stable condition, denies pain at this time, updated on poc vocied understanding, director park pump on demand, call light in reach will continue to monitor
--- NOTE | 2020-01-19 07:05 | NUR ---
Bed side shift report given to oncoming rn.stable condition
[2020-01-19] MEDS: DOCUSATE SODIUM 100 MG CAP PO SCH ×2 (08:25→16:43)
[2020-01-19] MEDS: PANTOPRAZOLE SOD 40 MG TABEC PO SCH ×2 (08:25→16:43)
[2020-01-19] MEDS: HYDRALAZINE HCL 25 MG TAB PO SCH ×3 (08:25→21:06)
[2020-01-19] MEDS: AMLODIPINE BESYLATE 5 MG TAB PO SCH ×2 (08:26→15:42)
[2020-01-19] MEDS: PRAVASTATIN 20 MG TAB PO SCH (08:26)
[2020-01-19] MEDS: LABETALOL HCL 100 MG TAB PO SCH ×2 (08:27→15:42)
[2020-01-19] MEDS: SERTRALINE HCL 100 MG TAB PO SCH (08:27)
[2020-01-19] MEDS: LEVOFLOXACIN 500MG/D5W 100ML 100 ML IV SCH (11:12)
[2020-01-19] MEDS ORDERED: POTASSIUM CHLORIDE 20 MEQ TAB CR PO ONE (11:30)
[2020-01-19] MEDS ORDERED: MORPHINE SULFATE 2 MG/ML SYR 1ML IV PRN (16:15)
[2020-01-19] MEDS ORDERED: BISACODYL 10 MG SUPP PR ONE (16:15)
[2020-01-19] MEDS ORDERED: CALCIUM CARBONATE 500 MG CHEWABLE TABS PO PRN (16:45)
--- NOTE | 2020-01-19 19:00 | NUR ---
RECEIVED THE PATIENT IN REPORT.LYEING IN THE BED.NO BOWEL MOVEMENT.ABD.PAIN VOICED 01/18.
[2020-01-19] MEDS: ACETAMINOPHEN/CODEINE 300MG - 30MG TAB PO PRN (19:43)
--- NOTE | 2020-01-19 21:20 | NUR ---
Asessment done.no resp,distress.ulloa care given.bed locked and in lowest position.phone and call light within reach.instructed to call for assistance as needed.iv fluid running.
--- NOTE | 2020-01-19 22:42 | Operative Report ---
DATE OF PROCEDURE: 01/17/2020 SURGEON: Rick Ayala MD PREOPERATIVE DIAGNOSES: 1. Prolapse. 2. Impending incontinence. 3. Uterine prolapse. OPERATIONS PERFORMED: 1. Assisting Dr. Walton in performing total abdominal hysterectomy, bilateral salpingo-oophorectomy. 2. Sacrocolpopexy utilizing mesh. 3. Anterior vesicourethropexy. BIOCHEMICAL ENGINEER: Rene Walton MD ANESTHESIA: General. COMPLICATIONS: None. CLINICAL SUMMARY: Luisa Mobley is a 69-year-old woman with severe prolapse. Her prolapse was severe enough to block both of her ureters. She underwent bilateral ureteral stenting. She has also undergone a bilateral ESWL for her stones. She was brought to the operating room for the above procedures. This procedure is in no way related to the prior lithotripsy, and has been planned to be performed during the lithotripsy postoperative period. The patient is aware of the risks of bleeding, infection, injury to adjacent structures, incontinence, and need for additional procedures, she elected to proceed. The patient also understands that she has indwelling ureteral stents that will require followup and removal at a later date. This procedure was performed during the COVID-19 emergency situation due to the fact that it is in no way elective. The patient's prolapse causing her pain and discomfort and she was originally scheduled for next month, but requested that we perform the procedure sooner due to her discomfort. OPERATIVE PROCEDURE IN DETAIL: Informed consent was verified, Luisa Mobley was properly identified and was taken to the operating room, placed on the operating table in supine position. Anesthesia was uneventfully begun. The patient was carefully and gently repositioned in the frogleg position with all pressure points carefully well padded. Her abdomen and genitalia were prepared and draped in usual sterile fashion. Interiano catheter was placed. Dr. Walton proceeded with performing total abdominal hysterectomy, bilateral salpingo-oophorectomy with my assistance. The posterior peritoneum was then incised over the sacral promontory. Once the sacral promontory was exposed, two heavy Ethibond sutures were placed through the periosteum at the level of the sacral promontory. We then further exposed the anterior and posterior salazar of the vagina and we then attached two pieces of antibiotic irrigant soaked mesh and sutured them with numerous sutures to the anterior and posterior vaginal salazar extending approximately 2 cm from the vaginal cuff. The meshes were attached, they were cut to length and then tied down to the sacral promontory utilizing the previously placed sutures. Vicryl sutures were utilized to attach the mesh to the vaginal salazar. There was resulted in a tension-free sacrocolpopexy. We then retroperitonealized the mesh by closing the posterior peritoneum incision as well as covering the mesh with remaining mesentery. Copious irrigation was performed, we verified hemostasis. We then developed the space of Retzius and placed 4 sutures. Two heavy Vicryl sutures were then placed lateral to the urethrovesical junction and then two additional sutures were placed just distal to the previously placed sutures. All four sutures were then tied. We then approximated to their respective positions on Dio's ligament and tied down, thus completing the Reynolds sacral colpopexy. Copious irrigation was performed. The abdominal incision was then approximated utilizing heavy Vicryl suture in interrupted [id number] fashion. The skin was approximated with skin daly. Copious irrigation was performed for each layer of the closure. Sterile dressings were applied and the patient was uneventfully reversed from anesthesia and taken to recovery room in stable condition. There were no complications to the procedure. She tolerated the procedure well. Estimated blood loss was 250 mL for the entire procedure. We will proceed with routine postoperative care and of course lifelong urological followup. Rick Ayala MD OH/MODL /[id number] cc: Will Chen DO
[2020-01-20] VITALS (8 sets, daily range): BP systolic 135–162; BP diastolic 72–99
[2020-01-20] MEDS: ACETAMINOPHEN/CODEINE 300MG - 30MG TAB PO PRN ×2 (01:17→14:32)
--- NOTE | 2020-01-20 01:34 | NUR ---
HAD A SMALL AMOUNT OF BOWEL MOVEMENT.
[2020-01-20] MEDS: ONDANSETRON HCL INJ 2MG/ML 2ML 2 MG/ML VIAL IV PRN ×2 (02:50→10:13)
--- NOTE | 2020-01-20 02:51 | NUR ---
C/O NAUSEA.MEDICATED WITH ZOFRAN 4 NG IV GIVEN.
[2020-01-20] MEDS: PROMETHAZINE 25MG/ NS 50ML (IV) IV PRN ×2 (05:05→15:09)
--- NOTE | 2020-01-20 05:06 | NUR ---
VOMITED 75 CC BROWN COLORED.NOTIFIED TO DIABETES MANAGER OF MD CLAYTON.RECEIVED NEW ORDERS.IMPLEMENTED.
[2020-01-20] MEDS: CLINDAMYCIN 300MG 50 ML IV SCH ×3 (05:39→22:00)
[2020-01-20 05:42] LABS: BASOPHILS % 0.4 % (0.0-1.0); EOSINOPHILS # (AUTO) 0.3 (0.0-0.4); EOSINOPHILS % 2.5 % (0.0-6.0); HEMATOCRIT 37.6 % (34.2-44.1); HEMOGLOBIN 12.3 g/dL (12.0-16.0); LYMPHOCYTES # (AUTO) 1.3 (1.0-3.2); LYMPHOCYTES % 12.1 % (18.0-39.1); MEAN CORPUSCULAR HEMOGLOBIN 32.3 pg (28-32); MEAN CORPUSCULAR HGB CONC 32.7 g/dL (31-35); MEAN CORPUSCULAR VOLUME 98.7 fL (81-99); MONOCYTES % 9.2 % (4.4-11.3); NEUTROPHILS # (AUTO) 8.2 (2.1-6.9); NEUTROPHILS % 75.3 % (38.7-80.0); PLATELET COUNT 170 x10e3/uL (140-360); RED BLOOD COUNT 3.81 x10e6/uL (3.6-5.1); RED CELL DISTRIBUTION WIDTH 15.6 % (11.7-14.4)
[2020-01-20 06:03] LABS: ANION GAP 15.3 mmol/L (8-16); BLOOD UREA NITROGEN 6 mg/dL (7-26); BUN/CREATININE RATIO 8 (6-25); CALCIUM 10.1 mg/dL (8.4-10.2); CARBON DIOXIDE 25 mmol/L (22-29); CHLORIDE 100 mmol/L (98-107); CREATININE, SERUM 0.76 mg/dL (0.57-1.11); EST GLOMERULAR FILTRATION RATE > 60 ML/MIN (60-); GLUCOSE 162 mg/dL (74-118); POTASSIUM 4.3 mmol/L (3.5-5.1); SODIUM 136 mmol/L (136-145)
--- NOTE | 2020-01-20 06:55 | NUR ---
BED SIDE SHIFT REPORT GIVEN TO MIRELA DOTY.PATIENT IS OFF THE UNIT FOR PROCEDURE. Addendum: 01/20/20 at 0705 by Marie Cuello RN ERROR
--- NOTE | 2020-01-20 07:00 | NUR ---
RECEIVED PATIENT RESTING IN BED NO S/S OF DISTRESS. BED LOW, WHEELS LOCKED, SIDE RAILS X2. CALL LIGHT IN REACH WILL CONTINUE TO MONITOR PATIENT.
--- NOTE | 2020-01-20 07:03 | NUR ---
BED SIDE SHIFT REPORT GIVEN TO ONCOMING RN.STABLE CONDITION.
[2020-01-20] MEDS: DOCUSATE SODIUM 100 MG CAP PO SCH ×2 (08:07→16:00)
[2020-01-20] MEDS: PANTOPRAZOLE SOD 40 MG TABEC PO SCH ×2 (08:07→16:00)
[2020-01-20] MEDS: PRAVASTATIN 20 MG TAB PO SCH (08:07)
[2020-01-20] MEDS: AMLODIPINE BESYLATE 5 MG TAB PO SCH ×2 (08:07→16:00)
[2020-01-20] MEDS: HYDRALAZINE HCL 25 MG TAB PO SCH ×3 (08:07→21:45)
[2020-01-20] MEDS: LABETALOL HCL 100 MG TAB PO SCH ×2 (08:08→16:00)
[2020-01-20] MEDS: SERTRALINE HCL 100 MG TAB PO SCH (09:03)
--- NOTE | 2020-01-20 09:36 | NUR ---
AMBULATED PATIENT IN HALLWAY. STEADY GAIT PRESENT. PATIENT BACK TO ROOM SITTING UP IN RECLINER. CALL LIGHT IN REACH WILL CONTINUE TO MONITOR PATIENT.
[2020-01-20] MEDS: D5.45%NS/KCL 20MEQ 1,000 ML IV SCH ×2 (10:13→20:41)
[2020-01-20] MEDS: LEVOFLOXACIN 500MG/D5W 100ML 100 ML IV SCH (11:39)
[2020-01-20] MEDS: SIMETHICONE 80 MG CHEW PO SCH ×2 (16:00→21:45)
[2020-01-21 00:45] VITALS: BP 127/67
[2020-01-21 04:00] VITALS: BP 156/88
[2020-01-21] MEDS: CLINDAMYCIN 300MG 50 ML IV SCH ×2 (06:00→14:54)
[2020-01-21] MEDS: D5.45%NS/KCL 20MEQ 1,000 ML IV SCH (06:14)
[2020-01-21 06:28] LABS: BASOPHILS % 0.5 % (0.0-1.0); EOSINOPHILS # (AUTO) 0.4 (0.0-0.4); EOSINOPHILS % 4.6 % (0.0-6.0); HEMATOCRIT 34.6 % (34.2-44.1); HEMOGLOBIN 11.2 g/dL (12.0-16.0); LYMPHOCYTES # (AUTO) 1.7 (1.0-3.2); LYMPHOCYTES % 19.7 % (18.0-39.1); MEAN CORPUSCULAR HEMOGLOBIN 31.8 pg (28-32); MEAN CORPUSCULAR HGB CONC 32.4 g/dL (31-35); MEAN CORPUSCULAR VOLUME 98.3 fL (81-99); MONOCYTES # (AUTO) 0.9 (0.2-0.8); NEUTROPHILS # (AUTO) 5.7 (2.1-6.9); NEUTROPHILS % 64.7 % (38.7-80.0); PLATELET COUNT 157 x10e3/uL (140-360); RED BLOOD COUNT 3.52 x10e6/uL (3.6-5.1); RED CELL DISTRIBUTION WIDTH 15.7 % (11.7-14.4)
--- NOTE | 2020-01-21 06:38 | NUR ---
Attempted to reinsert IV in patient. 2 nurses tried. Patient could not tolerate iv start and requested to wait till later. For now unable to administer 6am fluids and iv as there is no IV access. Day shift to be notified to try and restart IV .
--- NOTE | 2020-01-21 07:00 | NUR ---
RECEIVED PATIENT RESTING IN BED NO S/S OF DISTRESS. BED LOW, WHEELS LOCKED, SIDE RAILS X2. CALL LIGHT IN REACH WILL CONTINUE TO MONITOR PATIENT.
[2020-01-21 07:01] LABS: ANION GAP 15.1 mmol/L (8-16); BLOOD UREA NITROGEN 9 mg/dL (7-26); BUN/CREATININE RATIO 11 (6-25); CALCIUM 9.8 mg/dL (8.4-10.2); CARBON DIOXIDE 26 mmol/L (22-29); CHLORIDE 101 mmol/L (98-107); CREATININE, SERUM 0.79 mg/dL (0.57-1.11); EST GLOMERULAR FILTRATION RATE > 60 ML/MIN (60-); GLUCOSE 117 mg/dL (74-118); MAGNESIUM 1.4 MG/DL (1.3-2.1); POTASSIUM 4.1 mmol/L (3.5-5.1); SODIUM 138 mmol/L (136-145)
[2020-01-21 07:51] VITALS: BP 151/80
[2020-01-21] MEDS: DOCUSATE SODIUM 100 MG CAP PO SCH ×2 (07:58→16:27)
[2020-01-21] MEDS: HYDRALAZINE HCL 25 MG TAB PO SCH ×2 (07:58→14:54)
[2020-01-21] MEDS: SERTRALINE HCL 100 MG TAB PO SCH (07:58)
[2020-01-21] MEDS: PANTOPRAZOLE SOD 40 MG TABEC PO SCH ×2 (07:58→16:27)
[2020-01-21] MEDS: SIMETHICONE 80 MG CHEW PO SCH ×3 (07:58→16:27)
[2020-01-21] MEDS: PRAVASTATIN 20 MG TAB PO SCH (07:58)
[2020-01-21] MEDS: AMLODIPINE BESYLATE 5 MG TAB PO SCH ×2 (07:58→16:27)
[2020-01-21] MEDS: LABETALOL HCL 100 MG TAB PO SCH ×2 (07:58→16:28)
[2020-01-21 08:25] VITALS: BP 151/80
--- NOTE | 2020-01-21 10:10 | NUR ---
REMOVED PATIENTS [place]. CATHETER TIP INTACT ON REMOVAL. PATIENT DUE TO VOID.
[2020-01-21] MEDS: LEVOFLOXACIN 500MG/D5W 100ML 100 ML IV SCH (11:17)
[2020-01-21 11:45] VITALS: BP 119/74
--- NOTE | 2020-01-21 12:58 | NUR ---
PVR DONE AFTER VOID, 0 ML.
--- NOTE | 2020-01-21 12:58 | NUR ---
PATIENT HAS VOIDED SINCE [place] REMOVAL.
--- NOTE | 2020-01-21 13:59 | NUR ---
RECEIVED ORDER FOR SNF, SPOKE WITH PT AND HER DAUGHTER, SHE SIGNED CHOICE FOR [facility] FILED IN CHART AND WILL FAX CLINICALS TO FACILITY WITH [facility] AND COVID LETTER. WILL COMPLETE RTF FOR COMPLETION OF TRANSFER
[2020-01-21] MEDS ORDERED: MAGNESIUM SULFATE 2GM/50ML 50 ML IV ONE (14:30)
--- NOTE | 2020-01-21 14:30 | NUR ---
PVR 0 ML POST VOID.
[2020-01-21] MEDS ORDERED: LEVAQUIN500 MG IV (14:50)
[2020-01-21] MEDS ORDERED: Calcium Carbonate 500MG Chew PO (14:50)
[2020-01-21] MEDS ORDERED: MELATONIN5 M2 PO (14:50)
[2020-01-21] MEDS ORDERED: SIMETHICONE80 MG PO (14:50)
[2020-01-21] MEDS ORDERED: TYLENOL # 31 EA PO (14:50)
[2020-01-21] MEDS ORDERED: CLINDAMYCI300 MG/51 IV (14:50)
--- NOTE | 2020-01-21 15:42 | NUR ---
LONG TERM FACILITY DISCHARGE INFORMATION PATIENT HAS BEEN ACCEPTED TO: NAME: [facility] ADDRESS: [id number] ACCEPTING DELIVERY MANAGER: GISSEL CHEUNG MD: DENAE ROOM: 119 NURSE CALL REPORT TO: [phone] IMM SIGNED AND OBTAINED (if applicable): IMM THE FOLLOWING DOCUMENTS MUST ACCOMPANY PATIENT FOR TRANSFER: COPIED CHART: PACKET
[2020-01-21 16:22] VITALS: BP 120/66
--- NOTE | 2020-01-21 17:00 | NUR ---
REPORT CALLED TO TONNY DOTY AT [facility]. SUMMARY OF CARE GIVEN TO PATIENT.
--- NOTE | 2020-01-21 17:05 | Discharge Summary ---
PRIMARY CARE PHYSICIAN: Will Chen DO CHIEF COMPLAINT: Uterovaginal prolapse. HISTORY OF PRESENT ILLNESS: A 69-year-old female, who admitted status post total abdominal hysterectomy and bilateral salpingo-oophorectomy, mesh sacrocolpopexy, and bladder suspension for uterovaginal prolapse. PAST MEDICAL HISTORY: Hypertension, anxiety, depression, rheumatoid arthritis, gastroesophageal reflux disease, and uterovaginal prolapse. PAST SURGICAL HISTORY: Right inguinal hernia repair, thyroid surgery. FAMILY HISTORY: Mother had diabetes. Father had CVA. SOCIAL HISTORY: Occasional alcohol. Denies tobacco or illicit drugs. She vapes occasionally. ALLERGIES: INCLUDE AMOXICILLIN, CLAVULANIC ACID, LISINOPRIL, AND PENICILLIN. ADMITTING DIAGNOSES: 1. Grade 4 uterine prolapse, status post total abdominal hysterectomy, bilateral salpingo-oophorectomy, bladder suspension with mesh sacrocolpopexy. 2. Hypertension. 3. Anxiety/depression. 4. Hyperlipidemia. 5. Rheumatoid arthritis. 6. Gastroesophageal reflux disease. DISCHARGE DIAGNOSES: 1. Grade 4 uterine prolapse, status post total abdominal hysterectomy, bilateral salpingo-oophorectomy, bladder suspension with mesh sacrocolpopexy. 2. Hypertension. 3. Anxiety/depression. 4. Hyperlipidemia. 5. Rheumatoid arthritis. 6. Gastroesophageal reflux disease. 7. Hypomagnesemia. As her magnesium is low, we will give her 2 g of magnesium sulfate prior to discharge. LABORATORY DATA: On admission WBC 8.63, hemoglobin 10.2, hematocrit 32.3, platelets 146. Sodium 138, potassium 3.6, chloride 106, CO2 of 26. BUN 7, creatinine 0.67 with an estimated GFR greater than 60, glucose 130, calcium 8.6. Chest x-ray on January 09 have shown no focal pneumonia or pulmonary edema. Surgery was done on 01/17/[address] Rene Walton. Also, consulted is Dr. Rick Ayala with Urology. Postvoid residual x3 is underway. Currently, postvoid residual is 0. Interiano catheter removed earlier today. The patient is to follow up in 2 weeks for staple removal. She has some poor balance and requires some moderate assistance with ambulation. It has been recommended by Physical Therapy that she go to senior care facility. She does have Medicare. Thus, the approval will be quick and the patient has [facility]. She has been changed from clear liquid diet to regular diet, had some vomiting yesterday, but today ate chicken piece and rice without difficulty. The pain level is currently 2/10 on a scale of 0 to 10. She had a watery diarrhea bowel movement today, but has not had anything to eat in some time. As far as solid foods, has been on clear liquid diet. PHYSICAL EXAMINATION: VITAL SIGNS: T-max 99.7, temperature 99.2, heart rate 79, blood pressure 119/74, respirations 18, and oxygen saturation 91% on room air. INTAKE AND OUTPUT: 1440 mL in and 2650 mL out. GENERAL: Sitting in a chair at bedside. No acute distress. LUNGS: Clear to auscultation. She is about a 1000 mL with her incentive spirometer. HEENT: EOMI. NECK: Supple. CARDIOVASCULAR: Regular rate and rhythm. No murmurs. ABDOMEN: Bowel sounds positive, soft. Slightly tender to gentle palpation. Has bikini cut abdominal incision with daly open to air, no drainage. EXTREMITIES: Without pitting edema. No clubbing, cyanosis, or sign of DVT. NEUROLOGIC: GCS 15. Nonfocal. LABORATORY DATA: WBC today 8.83, hemoglobin 11.2, hematocrit 34.6, platelets 157. Sodium 138, potassium 4.1, chloride 101, CO2 of 26. BUN 9, creatinine 0.79. Estimated GFR greater than 60, glucose 117, magnesium 1.4. ACTIVITY LEVEL: As tolerated. Continue physical therapy. FOLLOWUP: Follow up with Dr. Holloway and Marybeth, nurse practitioner with Dr. Holloway at the [facility]. Follow up with Dr. Walton and Dr. Ayala as directed. Dictated by Gautam Triplett, JOY MD TRUDY GarayP/ELDONL /[id number]
--- NOTE | 2020-01-21 17:53 | NUR ---
PVR 0 ML POST VOID.
--- NOTE | 2020-01-21 18:38 | NUR ---
PATIENT DISCHARGED FROM FACILITY. PATIENT GATHERED ALL PERSONAL BELONGINGS, PRESCRIPTION SENT WITH PATIENT TO [facility]. PATIENT LEFT UNIT IN STRETCHER WITH EMS. NO SIGNS OF DISTRESS WHEN LEAVING FACILITY.
== END 2020-01-21 18:39 | DRG 742 ==
LOC: OR 11:49 → MED/SURG 17:54
PROVIDERS: ADMIT Internal Medicine; ATTEND Internal Medicine
PROC: 0UT20ZZ Resection of Bilateral Ovaries, Open Approach (ICD-10-PCS; 2020-01-17)
PROC: 0USG0ZZ Reposition Vagina, Open Approach (ICD-10-PCS; 2020-01-17)
PROC: 0TSC0ZZ Reposition Bladder Neck, Open Approach (ICD-10-PCS; 2020-01-17)
PROC: 0UT90ZZ Resection of Uterus, Open Approach (ICD-10-PCS; principal; 2020-01-17 14:27)
PROC: 0UB70ZZ Excision of Bilateral Fallopian Tubes, Open Approach (ICD-10-PCS; 2020-01-17 14:27)
DX: N81.3 Complete uterovaginal prolapse (principal); N13.30 Unspecified hydronephrosis; I10 Essential (primary) hypertension; F41.9 Anxiety disorder, unspecified; E83.42 Hypomagnesemia; M06.9 Rheumatoid arthritis, unspecified; K21.9 Gastro-esophageal reflux disease without esophagitis; Z83.3 Family history of diabetes mellitus; Z82.3 Family history of stroke; Z88.1 Allergy status to other antibiotic agents; Z88.0 Allergy status to penicillin; Z88.8 Allergy status to other drugs, medicaments and biological substances; Z87.440 Personal history of urinary (tract) infections; D25.9 Leiomyoma of uterus, unspecified; Z96.0 Presence of urogenital implants; E87.6 Hypokalemia
CPT/HCPCS: 36415; 80048; 83735; 85025; 88307; 88311; 96361; 97139; C1781; J1100; J1170; J1956; J2001; J2250; J2270; J2405; J2550; J3010; J3475

== ENCOUNTER → 2020-03-18 | Day surgery (SDC) | payer MEDICARE, BC, OTHER ==
[2020-03-13 13:27] LABS: BASOPHILS % 0.6 % (0.0-1.0); EOSINOPHILS # (AUTO) 0.5 (0.0-0.4); EOSINOPHILS % 6.4 % (0.0-6.0); HEMOGLOBIN 11.6 g/dL (12.0-16.0); LYMPHOCYTES # (AUTO) 1.6 (1.0-3.2); LYMPHOCYTES % 22.4 % (18.0-39.1); MEAN CORPUSCULAR HEMOGLOBIN 32.5 pg (28-32); MEAN CORPUSCULAR HGB CONC 31.4 g/dL (31-35); MEAN CORPUSCULAR VOLUME 103.6 fL (81-99); MONOCYTES # (AUTO) 0.5 (0.2-0.8); NEUTROPHILS # (AUTO) 4.6 (2.1-6.9); NEUTROPHILS % 63.3 % (38.7-80.0); PLATELET COUNT 233 x10e3/uL (140-360); RED BLOOD COUNT 3.57 x10e6/uL (3.6-5.1); RED CELL DISTRIBUTION WIDTH 15.3 % (11.7-14.4)
[2020-03-13 13:45] LABS: BLOOD UREA NITROGEN 13 mg/dL (7-26); BUN/CREATININE RATIO 16 (6-25); CARBON DIOXIDE 24 mmol/L (22-29); CHLORIDE 108 mmol/L (98-107); CREATININE, SERUM 0.83 mg/dL (0.57-1.11); EST GLOMERULAR FILTRATION RATE > 60 ML/MIN (60-); GLUCOSE 93 mg/dL (74-118); SODIUM 140 mmol/L (136-145)
--- NOTE | 2020-03-13 14:02 | Diagnostic Imaging Report ---
EXAM: Abdomen 2 Views INDICATION: ^PRE - OP COMPARISON: [facility] 12/27/[address] abdomen and pelvis 12/20/2019 FINDINGS: Lines/tubes: None. Mild amount of stool in the colon. No dilated loops of small bowel. A 2 mm calcification overlying the right kidney is unchanged and may reflect the previously noted renal stone. Bilateral ureteral stents appearing adequate position and unchanged since prior exam. No abnormal soft tissue masses. Advanced degenerative changes in the lumbar spine and pelvis. IMPRESSION: 1. Bilateral carotid stents. 2. A 2 mm calcification overlying the right kidney is unchanged and may reflect the previously noted renal stone. No abnormal calcifications along the collecting system on limited evaluation. Signed by: Dr. Teetee Chacon M.D. on 03/13/2020 1:59 PM
[~2020-03-18] MED LIST changes: +ASPIRIN81 MG PO; +AZO URINARY P99.5 MG PO; +B&O 60MG R/S 60 MG SUPP PR ONE; +CIPRO500 MG PO; +CLINDAMYCI300 MG/51 IV; +Calcium Carbonate 500MG Chew PO; +EPHEDRINE SULFATE INJ 50 MG/ML VIAL ONE; +ETOMIDATE 2 MG/ML 10 ML INJ IV ONE; +GENTAMICIN 80MG/NS 100 ML 200 ML IV ONE; +IOPAMIDOL 300MG/ML 50ML INFUS..BTL IV ONE; +LEVAQUIN500 MG IV; +LIDOCAINE HCL 2% LOCAL INJ 5 ML SDV VIAL INJ ONE; +MELATONIN5 M2 PO; +ONDANSETRON HCL INJ 2MG/ML 2ML 2 MG/ML VIAL ONE; +POTASSIUM CHLO10 ME1 PO; +PROPOFOL IV EMULSION 10 MG/ML 20 ML VIAL ONE; +SEVOFLURANE INHAL SOLN 250 ML PEN BTL ONE; +SIMETHICONE80 MG PO; +TYLENOL # 31 EA PO; +VANCOMYCIN 1GM/NS 250 ML 250 ML ONE
--- NOTE | 2020-03-18 07:22 | NUR ---
SPIRITUAL CARE - Pre-Surgery Assessment: Pt in bed. Pt reported supportive attention from family and friends. Intervention: Grants Assistant provided pastoral presence, hospitality, and sympathetic listening. Acquainted pt with availability of planisher while hospitalized. Outcome: Pt expressed appreciation for visit. No need for follow up indicated at this time. ERWIN Diaz Spiritual Care Department O: [phone]
[2020-03-18 12:00] VITALS: BP 121/63
--- NOTE | 2020-04-13 02:55 | Operative Report ---
DATE OF PROCEDURE: 03/18/2020 SURGEON: Rick Ayala MD PREOPERATIVE DIAGNOSES: 1. Bilateral indwelling ureteral stents. 2. Atrophic vaginitis. POSTOPERATIVE DIAGNOSES: 1. Bilateral indwelling ureteral stents. 2. Atrophic vaginitis. 3. Right ureteral stricture. 4. Right hydronephrosis due to stricture. 5. Left hydronephrosis. OPERATIONS PERFORMED: Note these were all staged procedures as part of multi-staged and multi-step process in managing the patient's urolithiasis as well as ureteral stents. This is done as a staged procedure and is not part of the sacral colpopexy procedure as well. PROCEDURE IN DETAIL: Informed consent was verified. Luisa Mobley was properly identified, taken to the operating room, placed on the cystoscopy table in supine position. Anesthesia was uneventfully begun. The patient was then carefully and gently repositioned in dorsal lithotomy position with all pressure points well padded. Her genitalia were prepared and draped in usual sterile fashion. The cystoscope sheath with obturator in place was atraumatically inserted. The patient's urethra and bladder were drained. Panendoscopy revealed no suspicious mucosal lesions, no tumors, no stones, and no diverticula. Normally positioned configured ureteral orifices were identified. A guidewire was then placed alongside the right indwelling ureteral stent, guided to the level of the patient's kidney. The stent was then grasped completely, removed and discarded. A semi-rigid ureteroscope was then placed alongside the guidewire into the distal ureter. We identified obstruction of the ureter around the region of the pelvic vessels. Over the guidewire, we gently dilated under direct vision with the ureteroscope through this region and the more proximal ureter appeared dilated. A secondary guidewire was left in place and a flexible ureteroscope was brought up over the guidewire and guided to the level of the patient's kidney, where panendoscopy revealed Kelton's plaques throughout, but no stones were identified. Guidewire was left in place. Under cystoscopic, fluoroscopic guidance, a right-sided indwelling ureteral stent was then placed. It was coiled in the patient's kidney as well as the patient's bladder, retaining suture was cut short. An identical side maneuver was performed on left hand side. The left hand side exhibited no ureteral strictures. Even though there was ureteral tortuosity, there was no evidence of physical obstruction and there were Kelton's plaques present as well. No residual stones on this side as well. Interpretation of retrograde ureteropyelography contrast was instilled in a retrograde fashion bilaterally. There was a narrowing in the right ureter. There was bilateral hydronephrosis. There was bilateral ureteral tortuosity. The hydronephrosis was more prominent on left hand side, but the left side appeared to drain without any problems and ureteroscopically, there was no obstruction. The right side stent was coiled in good position to the patient's bladder as well as the patient's kidney. The patient's bladder was drained. Cystoscope was withdrawn. Pelvic examination revealed no cystocele, no rectocele. The patient's vaginal cuff prolapse seemed to have been resolved by the sacral colpopexy at this point in time. The patient was then uneventfully reversed from anesthesia and taken to recovery room in stable condition. There were no complications to the procedure. She tolerated the procedure well. Plans will be to remove the patient's stent in the office in several weeks. MD ADAN Crane/TINA /[id number]
== END | disposition home or self-care (01) ==
LOC: OR 05:25
PROVIDERS: ATTEND Urology
DX: N13.1 Hydronephrosis with ureteral stricture, not elsewhere classified (principal); Z46.6 Encounter for fitting and adjustment of urinary device; N20.0 Calculus of kidney; N13.8 Other obstructive and reflux uropathy; N95.2 Postmenopausal atrophic vaginitis; M06.9 Rheumatoid arthritis, unspecified; K21.9 Gastro-esophageal reflux disease without esophagitis; F17.210 Nicotine dependence, cigarettes, uncomplicated; I10 Essential (primary) hypertension; Z88.6 Allergy status to analgesic agent; Z88.0 Allergy status to penicillin; Z88.8 Allergy status to other drugs, medicaments and biological substances; Z01.812 Encounter for preprocedural laboratory examination; Z01.818 Encounter for other preprocedural examination; Z11.59 Encounter for screening for other viral diseases; Z79.82 Long term (current) use of aspirin
CPT/HCPCS: 36415; 52332; 52344; 74018; 74420; 80048; 85025; 87086; C1766; C1769; C2617; J1580; J2001; J2405; J2704; J3370; Q9967; U0002

== ENCOUNTER → 2020-06-10 | Outpatient (CLI) | payer MEDICARE, BC, OTHER ==
[~2020-06-10] MED LIST changes: -B&O 60MG R/S 60 MG SUPP PR ONE; -EPHEDRINE SULFATE INJ 50 MG/ML VIAL ONE; -ETOMIDATE 2 MG/ML 10 ML INJ IV ONE; +FUROSEMIDE INJ 10 MG/ML 4 ML VIAL ONE; -GENTAMICIN 80MG/NS 100 ML 200 ML IV ONE; -IOPAMIDOL 300MG/ML 50ML INFUS..BTL IV ONE; -LIDOCAINE HCL 2% LOCAL INJ 5 ML SDV VIAL INJ ONE; -ONDANSETRON HCL INJ 2MG/ML 2ML 2 MG/ML VIAL ONE; -PROPOFOL IV EMULSION 10 MG/ML 20 ML VIAL ONE; -SEVOFLURANE INHAL SOLN 250 ML PEN BTL ONE; -VANCOMYCIN 1GM/NS 250 ML 250 ML ONE
--- NOTE | 2020-06-10 14:22 | Diagnostic Imaging Report ---
Renal Scan with Lasix [place]out Reason for exam: Unspecified hydronephrosis Technique: Following intravenous administration of 10 mCi of Tc-99m MAG3, dynamic images of the kidneys in the posterior projection were obtained through 40 minutes. Lasix 40 mg was administered intravenously at 10 minutes post injection of the tracer. Report: Left kidney: Perfusion of the left kidney is prompt. The kidney has a normal reniform shape. Extraction of tracer from the blood pool by the renal parenchyma is normal. Clearance of tracer from the renal parenchyma is prompt. The pelvicalyceal system is not dilated. Physiologic pooling of tracer is seen within the pelvicalyceal system. Drainage of tracer from the pelvicalyceal system is prompt and adequate prior to administration of Lasix. No significant stasis of tracer is seen within the left ureter. Right kidney: Perfusion to the right kidney is prompt. The right kidney has a normal reniform shape. Extraction of tracer by the renal parenchyma is normal. Clearance of tracer from the renal parenchyma is prompt. The pelvicalyceal system is not dilated. Physiologic pooling of tracer is seen within the pelvicalyceal system. Drainage of tracer from the pelvicalyceal system is prompt and adequate prior to administration of Lasix. No significant stasis of tracer is seen within the right ureter. Differential renal function: The left kidney contributes 50% of total renal function and the right kidney contributes 50% (normal 43-57%). Impression: 1. The function of the left kidney is generally normal. No hydronephrosis is present. No physiologically significant obstruction of the renal collecting system is present. 2. The function of the right kidney is generally normal. No hydronephrosis is present. No physiologically significant obstruction of the renal collecting system is present. 3. The differential renal function is preserved. Signed by: Dr. Larissa Cain M.D. on 06/10/2020 2:19 PM
== END ==
LOC: NM 09:47
PROVIDERS: ATTEND Urology
DX: N13.30 Unspecified hydronephrosis (principal)
CPT/HCPCS: 78708; A9562; J1940

== ENCOUNTER 2022-11-24 07:23 | Emergency (ER) | payer MEDICARE, BC ==
[~2022-11-24] VITALS: Ht 154.9 cm; Wt 66.7 kg
[~2022-11-24 07:23] MED LIST changes: -FUROSEMIDE INJ 10 MG/ML 4 ML VIAL ONE
[2022-11-24] MEDS ORDERED: NAPROXEN250 MG PO (09:34)
== END 2022-11-24 09:48 | disposition home or self-care (01) ==
LOC: ER 07:26
DX: M25.511 Pain in right shoulder (principal); S00.83XA Contusion of other part of head, initial encounter; W01.0XXA Fall on same level from slipping, tripping and stumbling without subsequent striking against object, initial encounter; Y93.01 Activity, walking, marching and hiking; Y92.89 Other specified places as the place of occurrence of the external cause; I10 Essential (primary) hypertension; E78.5 Hyperlipidemia, unspecified; M06.9 Rheumatoid arthritis, unspecified
CPT/HCPCS: 70450; 99284